=== PATIENT | male | born 1935 | race Caucasian/White ===

== ENCOUNTER 2020-10-24 22:12 | Emergency (ER) | payer MEDICARE, SELFPAY ==
--- NOTE | 2020-10-24 | XR_ITS ---
EXAMINATION: XR FINGER, LEFT CLINICAL INFORMATION: Foreign body in the middle finger. COMPARISON: None TECHNIQUE: 3 views of the left middle finger. FINDINGS: There is no radiopaque foreign body. No air in the soft tissues. No acute osseous abnormality. No fracture or dislocation. This mild joint narrowing of the third metacarpal bone just joint. Small subchondral cystic changes and spurring seen of the metacarpal head and small subchondral cystic changes of the proximal phalanx at this joint. This mild joint narrowing and subchondral cystic change also of the first metacarpal phalangeal joint. XR/XR finger LT min 2V IMPRESSION: 1. No radiopaque foreign body. No acute abnormality of the middle digit. 2. 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
[2020-10-24 22:16] VITALS: BP 154/76; PULSE 58; RESP 16; TEMP 37.1; O2SAT 98; BMI 26.6
--- NOTE | 2020-10-24 23:07 | ED.SKABFB ---
HPI - Skin/Abscess/Foreign Bdy General Chief complaint: Skin/Abscess/Foreign Body Stated complaint: finger pain Time Seen by Provider: 10/24/20 23:07 Source: patient Mode of arrival: ambulatory Limitations: no limitations History of Present Illness HPI narrative: 85-year-old male presenting to the ED with complaints of a questionable metal splinter to left middle finger tip after washing dishes with a scrubber. Denies any other symptoms complaints or concerns at this time. Related Data Previous Rx's Medication Instructions Recorded folic acid 1 mg tablet 1 mg PO DAILY #30 tab 09/14/20 metoprolol succinate 25 mg 25 mg PO DAILY #30 tab 09/14/20 tablet,extended release 24 hr omeprazole 20 mg capsule,delayed 20 mg PO DAILY #30 cap 09/14/20 release Allergies Allergy/AdvReac Type Severity Reaction Status Date / Time No Known Allergies Allergy Verified 10/24/20 22:21 Review of Systems Review of Systems: Constitutional : No Fever, No Chills, Cardiovascular : No Chest Pain, No SOB Respiratory : No Dyspnea Gastrointestinal : No abdominal pain Musculoskeletal : No Joint Swelling Skin : No skin laceration, + Foreign bodies, No rash, No surrounding erythema Neuro : No Weakness, No Numbness/tingling Psych : No SI/HI/thoughts of self injury Yes all other systems are reviewed and are negative [facility] Past Medical History Attestation statement: The following information was validated with the patient. Surgical History Stented coronary artery Social History Social History Advance Directives: No Advance Directives Information Provided: No Physical Exam Vital Signs: Vital Signs: Last Vital Signs Temp 98.7 F 10/24/20 22:16 Pulse 58 10/24/20 22:16 Resp 16 10/24/20 22:16 BP 154/76 H 10/24/20 22:16 Pulse Ox 98 10/24/20 22:16 Body Mass Index 26.6 vital signs have been reviewed as normal and appeared to be correct. Blood pressure normal. Heart rate normal. Respiration rate normal. Temperature normal. Oxygen saturation normal. Appearance: Alert. Oriented X3. No acute distress. Head: Normal external exam. Normocephalic. Eyes: PERRLA. EOMI. Conjunctiva and sclera normal. Eyelids normal. ENT: Pharynx normal. Uvula midline. Moist mucous membranes. Neck: Normal inspection. Neck supple. FROM. No adenopathy. No meningeal signs. CVS: Normal heart rate and rhythm. Heart sound normal. Pulses normal throughout. Respiratory: No respiratory distress. Painless inspiration. Back: Full range of motion noted. Skin: Skin warm and dry. Normal skin color. Normal skin turgor. No rashes/lesions/lacerations noted. Extremities: Extremities exhibit normal range of motion. Extremities nontender. Neuro: Oriented X 3. No motor deficit. No sensory deficit. Reflexes normal. Course Course Course Narrative: X-ray negative for any foreign bodies revealed arthritis. Will DC home with instructions to return if any new or worsening symptoms patient denies wanting a prescription for any symptomatic relief and instructions to follow-up with primary care provider. Patient understands agrees the plan. MDM - Skin/Abscess/Foreign Bdy Medical Records Attestation: I reviewed the patient's medical records. Imaging Data left middle finger: Attestation: I personally reviewed and interpreted this imaging study as follows: Radiologist's impression: IMPRESSION: 1. No radiopaque foreign body. No acute abnormality of the middle digit. 2. 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 Discharge Plan Discharge Clinical Impression: Finger pain, Arthritis Patient Disposition: Home, Self-Care Instructions: Arthritis (ED) Prescriptions: No Action metoprolol succinate 25 mg tablet extended release 24 hr 25 mg PO DAILY Qty: 30 RF: 5 folic acid 1 mg tablet 1 mg PO DAILY Qty: 30 RF: 5 omeprazole 20 mg capsule,delayed release(DR/EC) 20 mg PO DAILY Qty: 30 RF: 4 Referrals: Physician,Unknown [Primary Care Provider] - 2 days Print Language: Belarusian
== END 2020-10-24 23:30 | disposition home or self-care (01) ==
PROVIDERS: Emergency Provider Emergency Medicine Emergency Medical Services
DX: M79.645 Pain in left finger(s) (principal); Z79.899 Other long term (current) drug therapy
CPT/HCPCS: 73140; 99283; 99284

== ENCOUNTER 2020-11-05 09:27 | Outpatient (REF) | payer MEDICARE, SELFPAY ==
[2020-11-05 10:09] LABS: MANUAL DIFF FLAG NO
[2020-11-05 10:32] LABS: Basophils Percent Auto 0.7 % (0-2); Eosinophils Absolute Auto 0.1 X10*3/uL (0.0-0.4); Eosinophils Percent Auto 2.3 % (0-4); Hematocrit 36.1 % (42-52); Hemoglobin 11.1 g/dl (14.0-18.0); Imm Gran Abs Auto 0.02 X10*3/uL (0.00-0.03); Imm Gran Pct Auto 0.5 % (0.0-0.4); Lymphocytes Absolute Auto 0.8 X10*3/uL (1.2-4.9); Lymphocytes Percent Auto 17.2 % (20-40); Mean Corpuscular HGB Conc 30.7 g/dl (31.0-36.0); Mean Corpuscular Hemoglobin 20.2 pg (27.0-33.0); Mean Corpuscular Volume 65.8 fL (80-98); Mean Platelet Volume 10.3 fL (9.4-12.4); Monocytes Absolute Auto 0.4 X10*3/uL (0.1-1.2); Monocytes Percent Auto 8.7 % (2-11); Neutrophils Absolute Auto 3.1 X10*3/uL (2.0-8.3); Neutrophils Percent Auto 70.6 % (45-73); Platelet Count 133 X10*3/uL (160-400); Red Blood Count 5.49 X10*6/uL (4.60-5.80); Red Cell Distribution Width 15.6 % (11.0-16.0); White Blood Count 4.4 X10*3/uL (4.8-10.8)
[2020-11-05 11:03] LABS: Alanine Aminotransferase 14 U/L (0-40); Albumin Level 4.1 g/dL (3.5-5.0); Alkaline Phosphatase 134 U/L (39-117); Anion Gap 9 (12-20); Aspartate Amino Transferase 21 U/L (5-37); Bilirubin Total 1.1 mg/dL (0.0-1.0); Blood Urea Nitrogen 19 mg/dL (9-16); Calcium 8.7 mg/dL (8.4-10.2); Carbon Dioxide 29 mmol/L (22-29); Chloride 106 mmol/L (96-108); Cholesterol 139 mg/dL; Estimated Glomerular Filt Rate > 60; Glucose Fasting 98 mg/dL (60-99); HDL Cholesterol 48 mg/dL; LDL Cholesterol Calculated 79 mg/dl; Potassium 4.7 mmol/l (3.3-5.1); Sodium 139 mmol/L (135-145); Total Protein 6.5 g/dL (6.5-8.0); Triglycerides 64 mg/dL
[2020-11-05 11:05] LABS: Glucose Urine UA NEG (NEG); Leukocyte Esterase Urine NEG (NEG); Nitrite Urine NEG (NEG); Specific Gravity - Urine 1.025 (1.005-1.025); Urine Blood NEG (NEG); Urine Ketones NEG (NEG); Urine Protein 1+ MG/DL (NEG-TRACE)
[2020-11-05 11:11] LABS: Color Urine YELLOW
[2020-11-05 11:12] LABS: Appearance Urine CLEAR; Vitamin D 25-OH Total 44.8 ng/mL (>30)
[2020-11-05 11:21] LABS: Folate > 20.0 ng/mL (> or = 4.0); Vitamin B12 606 pg/mL (200-900)
[2020-11-05 12:12] LABS: Hyaline Casts Urine 0-2 /LPF; RBC Urine 0 /HPF (0); Squamous Epithelial Cell Urine TRACE /LPF; WBC Urine 0-2 /HPF (0-4)
== END 2020-11-05 09:28 | disposition home or self-care (01) ==
LOC: HO.10HDL 09:27
PROVIDERS: PCP Internal Medicine; Visit Provider Internal Medicine
DX: E78.00 Pure hypercholesterolemia, unspecified (principal); I25.10 Atherosclerotic heart disease of native coronary artery without angina pectoris; G62.9 Polyneuropathy, unspecified; K21.9 Gastro-esophageal reflux disease without esophagitis; D56.3 Thalassemia minor; N40.1 Benign prostatic hyperplasia with lower urinary tract symptoms; M88.862 Osteitis deformans of left lower leg; E55.9 Vitamin D deficiency, unspecified; E66.3 Overweight
CPT/HCPCS: 36415; 80053; 80061; 81001; 82306; 82607; 82746; 84443; 85025

== ENCOUNTER 2020-12-26 | Outpatient (REF) | payer MEDICARE, SELFPAY | END 2020-12-26 00:01 | disposition home or self-care (01) | LOC: HO.VC | PROVIDERS: Visit Provider Internal Medicine | DX: Z23 Encounter for immunization (principal) | CPT/HCPCS: 0011A ==

== ENCOUNTER 2021-01-22 | Outpatient (REF) | payer MEDICARE, SELFPAY | END 2021-01-22 00:01 | disposition home or self-care (01) | LOC: HO.VC | PROVIDERS: Visit Provider Internal Medicine | DX: Z23 Encounter for immunization (principal) | CPT/HCPCS: 0012A ==

== ENCOUNTER 2021-02-27 08:25 | Outpatient (REF) | payer MEDICARE, SELFPAY ==
[2021-02-27 10:05] LABS: MANUAL DIFF FLAG NO
[2021-02-27 10:14] LABS: Basophils Percent Auto 0.6 % (0-2); Eosinophils Absolute Auto 0.1 X10*3/uL (0.0-0.4); Eosinophils Percent Auto 1.3 % (0-4); Hematocrit 36.5 % (42-52); Hemoglobin 11.2 g/dl (14.0-18.0); Imm Gran Abs Auto 0.01 X10*3/uL (0.00-0.03); Imm Gran Pct Auto 0.2 % (0.0-0.4); Lymphocytes Percent Auto 20.9 % (20-40); Mean Corpuscular HGB Conc 30.7 g/dl (31.0-36.0); Mean Corpuscular Hemoglobin 20.2 pg (27.0-33.0); Mean Corpuscular Volume 65.9 fL (80-98); Mean Platelet Volume 11.4 fL (9.4-12.4); Monocytes Absolute Auto 0.4 X10*3/uL (0.1-1.2); Monocytes Percent Auto 9.1 % (2-11); Neutrophils Absolute Auto 3.2 X10*3/uL (2.0-8.3); Neutrophils Percent Auto 67.9 % (45-73); Platelet Count 171 X10*3/uL (160-400); Red Blood Count 5.54 X10*6/uL (4.60-5.80); Red Cell Distribution Width 16.4 % (11.0-16.0); White Blood Count 4.7 X10*3/uL (4.8-10.8)
[2021-02-27 10:53] LABS: Glucose Urine UA NEG (NEG); Leukocyte Esterase Urine NEG (NEG); Nitrite Urine NEG (NEG); Specific Gravity - Urine >= 1.030 (1.005-1.025); Urine Blood NEG (NEG); Urine Ketones NEG (NEG); Urine Protein 2+ MG/DL (NEG-TRACE)
[2021-02-27 10:56] LABS: Alanine Aminotransferase 14 U/L (0-40); Albumin Level 4.2 g/dL (3.5-5.0); Alkaline Phosphatase 148 U/L (39-117); Anion Gap 11 (12-20); Aspartate Amino Transferase 21 U/L (5-37); Bilirubin Total 1.3 mg/dL (0.0-1.0); Carbon Dioxide 26 mmol/L (22-29); Chloride 110 mmol/L (96-108); Cholesterol 155 mg/dL; Estimated Glomerular Filt Rate > 60; Glucose Fasting 91 mg/dL (60-99); HDL Cholesterol 53 mg/dL; LDL Cholesterol Calculated 87 mg/dl; Potassium 3.8 mmol/L (3.3-5.1); Sodium 143 mmol/L (135-145); Total Protein 6.8 g/dL (6.5-8.0); Triglycerides 75 mg/dL
[2021-02-27 10:58] LABS: Blood Urea Nitrogen 27 mg/dL (9-16); Calcium 9.4 mg/dL (8.4-10.2)
[2021-02-27 11:00] LABS: Appearance Urine CLEAR; Color Urine YELLOW
[2021-02-27 11:04] LABS: TSH reflex Free T4 1.46 uIU/mL (0.32-4.0); Vitamin D 25-OH Total 39.1 ng/mL (>30)
[2021-02-27 11:12] LABS: Squamous Epithelial Cell Urine 1+ /LPF
== END 2021-02-27 08:26 | disposition home or self-care (01) ==
LOC: HO.10HDL 08:25
PROVIDERS: Visit Provider Internal Medicine
DX: D56.3 Thalassemia minor (principal); G62.9 Polyneuropathy, unspecified; I25.10 Atherosclerotic heart disease of native coronary artery without angina pectoris; K21.9 Gastro-esophageal reflux disease without esophagitis; K59.00 Constipation, unspecified; E78.00 Pure hypercholesterolemia, unspecified; E55.9 Vitamin D deficiency, unspecified; M88.862 Osteitis deformans of left lower leg; E66.3 Overweight
CPT/HCPCS: 36415; 80053; 80061; 81001; 81003; 82306; 84443; 85025

== ENCOUNTER → 2021-05-16 08:42 | Outpatient (BNVA) | payer MEDICARE, SELFPAY | PROVIDERS: PCP Internal Medicine; Referring Provider Internal Medicine; Visit Provider Surgery | DX: L72.0 Epidermal cyst (principal) | CPT/HCPCS: 99202 ==

== ENCOUNTER → 2021-10-21 09:33 | Outpatient (BNVA) | payer MEDICARE, SELFPAY | PROVIDERS: PCP Internal Medicine; Referring Provider Internal Medicine; Visit Provider Surgery | DX: L72.0 Epidermal cyst (principal) | CPT/HCPCS: 99212 ==

== ENCOUNTER 2021-11-07 13:43 | Outpatient (REF) | payer MEDICARE, SELFPAY ==
[2021-11-07 13:45] VITALS: BMI 22.9
[2021-11-07 13:48] VITALS: BP 158/70; PULSE 60; RESP 16; TEMP 36.6; O2SAT 98
--- NOTE | 2021-11-07 14:15 | W.PM.OPN ---
Operative Note Operative Note Date of Service: 11/07/21 Narrative: Preop diagnosis: Epidermal inclusion cyst from the mid back Postop diagnosis: The same Procedure: Excision of large epidermal inclusion cyst from the mid back under local anesthesia Surgeon: Agustin Zambrano MD The patient is an 86-year-old male with a large epidermal cyst from the mid back. This measured about 6 cm across. He understood the technique of excision under local anesthesia. He was aware of the risks, benefits, and alternatives . He was brought to the operating room and placed in prone position. The area of the cyst was prepped and draped. Lidocaine 1% was used for local anesthesia. I made a transverse incision on the skin overlying this cyst using blade 15. This was carried down through the full-thickness of the skin and part of the subcutaneous layer until the cystic capsule was visualized. I sharply dissected the cyst capsule off the rest of the subcutaneous layer and posteriorly until this was delivered. This cyst measured about 6 cm diameter. This was sent as a specimen. I irrigated the area of excision and closed the incision with full-thickness nylon 3-0 interrupted sutures. Thick dressings were applied. The procedure was then completed The patient tolerated procedure well. There were no complication noted. Initial and final counts of sponges and instruments were correct. Estimated blood loss was about 5 cc . The patient was given wound care instructions and will be seen in the office for removal sutures.
== END 2021-11-07 13:44 | disposition home or self-care (01) ==
LOC: HO.MS 13:43
PROVIDERS: PCP Internal Medicine; Visit Provider Surgery
PROC: (CPT 11406; principal; 2021-11-07 13:50)
DX: L72.0 Epidermal cyst (principal)
CPT/HCPCS: 11406; 88304

== ENCOUNTER → 2021-11-20 12:49 | Outpatient (BNVA) | payer MEDICARE, SELFPAY | PROVIDERS: PCP Internal Medicine; Referring Provider Internal Medicine; Visit Provider Surgery | DX: Z48.817 Encounter for surgical aftercare following surgery on the skin and subcutaneous tissue (principal); Z87.2 Personal history of diseases of the skin and subcutaneous tissue | CPT/HCPCS: 99212 ==

== ENCOUNTER → 2021-12-12 15:22 | Outpatient (BNVA) | payer MEDICARE, SELFPAY | PROVIDERS: PCP Internal Medicine; Referring Provider Internal Medicine; Visit Provider Surgery | DX: Z48.817 Encounter for surgical aftercare following surgery on the skin and subcutaneous tissue (principal); Z87.2 Personal history of diseases of the skin and subcutaneous tissue | CPT/HCPCS: 99212 ==

== ENCOUNTER 2022-03-10 08:23 | Outpatient (REF) | payer MEDICARE, SELFPAY ==
[2022-03-10 08:33] LABS: MANUAL DIFF FLAG NO
[2022-03-10 09:01] LABS: Basophils Percent Auto 0.6 % (0-2); Eosinophils Absolute Auto 0.1 X10*3/uL (0.0-0.4); Eosinophils Percent Auto 1.7 % (0-4); Hematocrit 39.3 % (42.0-52.0); Hemoglobin 11.9 g/dl (14.0-18.0); Imm Gran Abs Auto 0.02 X10*3/uL (0.00-0.03); Imm Gran Pct Auto 0.4 % (0.0-0.4); Lymphocytes Percent Auto 20.6 % (20-40); Mean Corpuscular HGB Conc 30.3 g/dl (31.0-36.0); Mean Corpuscular Hemoglobin 19.9 pg (27.0-33.0); Mean Corpuscular Volume 65.8 fL (80.0-98.0); Mean Platelet Volume 10.6 fL (9.4-12.4); Monocytes Absolute Auto 0.4 X10*3/uL (0.1-1.2); Monocytes Percent Auto 9.4 % (2-11); Neutrophils Absolute Auto 3.1 x10*3/uL (2.0-8.3); Neutrophils Percent Auto 67.3 % (45-73); Platelet Count 138 X10*3/uL (160-400); Red Blood Count 5.97 X10*6/uL (4.60-5.80); Red Cell Distribution Width 15.7 % (11.0-16.0); White Blood Count 4.7 X10*3/uL (4.8-10.8)
[2022-03-10 09:09] LABS: Alanine Aminotransferase 16 U/L (0-40); Albumin Level 4.2 g/dL (3.5-5.0); Alkaline Phosphatase 133 U/L (39-117); Anion Gap 9 (12-20); Aspartate Amino Transferase 22 U/L (5-37); Bilirubin Total 1.4 mg/dL (0.0-1.0); Blood Urea Nitrogen 15 mg/dL (9-16); Carbon Dioxide 29 mmol/L (22-29); Chloride 105 mmol/L (96-108); Cholesterol 154 mg/dL; Estimated Glomerular Filt Rate > 60; Glucose Fasting 102 mg/dL (60-99); HDL Cholesterol 55 mg/dL; Iron 92 mcg/dL (45-160); LDL Cholesterol Calculated 80 mg/dl; Percent Iron Saturation 32 % (15-50); Potassium 4.3 mmol/L (3.3-5.1); Sodium 139 mmol/L (135-145); Total Iron Binding Capacity 284 mcg/dL (228-428); Total Protein 6.9 g/dL (6.5-8.0); Triglycerides 96 mg/dL; Unsaturated Iron Binding 192 ug/dL
[2022-03-10 09:12] LABS: Appearance Urine CLEAR; Color Urine YELLOW; Glucose Urine UA NEG (NEG); Leukocyte Esterase Urine NEG (NEG); Nitrite Urine NEG (NEG); UACC Culture Trigger NO; Urine Blood NEG (NEG); Urine Ketones NEG (NEG); Urine Protein 1+ MG/DL (NEG-TRACE)
[2022-03-10 09:29] LABS: TSH reflex Free T4 2.18 uIU/mL (0.32-4.0); Vitamin D 25-OH Total 40.3 ng/mL (>30)
[2022-03-10 09:40] LABS: Mucus Urine TRACE /LPF; RBC Urine 0-2 /HPF (0); Squamous Epithelial Cell Urine TRACE /LPF; WBC Urine 0-2 /HPF (0-4)
[2022-03-12 22:26] LABS: Hematocrit 39.8 % (38.5-50.0); Hemoglobin 12.4 g/dL (13.2-17.1); MCH 20.2 pg (27.0-33.0); MCV 64.9 fL (80.0-100.0); RBC 6.13 Million/uL (4.20-5.80); RDW 17.2 % (11.0-15.0)
== END 2022-03-10 08:24 | disposition home or self-care (01) ==
LOC: HO.LAB 08:23
PROVIDERS: PCP Internal Medicine; Visit Provider Urology
DX: D56.3 Thalassemia minor (principal); E78.00 Pure hypercholesterolemia, unspecified; I25.10 Atherosclerotic heart disease of native coronary artery without angina pectoris; E55.9 Vitamin D deficiency, unspecified; D50.9 Iron deficiency anemia, unspecified; M88.862 Osteitis deformans of left lower leg
CPT/HCPCS: 36415; 80053; 80061; 81001; 82306; 83020; 83540; 84443; 85014; 85018; 85025; 85041

== ENCOUNTER 2022-03-17 09:35 | Outpatient (REF) | payer MEDICARE, SELFPAY ==
[2022-03-17 11:38] LABS: PSA,Total (Free>4and<10) 2.03 ng/mL (0.00-4.00)
== END 2022-03-17 09:36 | disposition home or self-care (01) ==
LOC: HO.10HDL 09:35
PROVIDERS: Visit Provider Urology
DX: Z12.5 Encounter for screening for malignant neoplasm of prostate (principal); N40.1 Benign prostatic hyperplasia with lower urinary tract symptoms
CPT/HCPCS: 36415; 84153

== ENCOUNTER → 2022-03-19 11:22 | Outpatient (BNVA) | payer MEDICARE, SELFPAY | PROVIDERS: PCP Internal Medicine; Visit Provider Urology | DX: Z13.89 Encounter for screening for other disorder (principal) | CPT/HCPCS: 99212 ==

== ENCOUNTER 2022-04-22 08:17 | Outpatient (REF) | payer MEDICARE, SELFPAY ==
[2022-04-22 08:50] LABS: MANUAL DIFF FLAG NO
[2022-04-22 09:09] LABS: Basophils Percent Auto 0.8 % (0-2); Eosinophils Absolute Auto 0.1 X10*3/uL (0.0-0.4); Eosinophils Percent Auto 1.2 % (0-4); Hematocrit 38.2 % (42.0-52.0); Hemoglobin 11.6 g/dl (14.0-18.0); Imm Gran Abs Auto 0.03 X10*3/uL (0.00-0.03); Imm Gran Pct Auto 0.6 % (0.0-0.4); Lymphocytes Absolute Auto 0.9 X10*3/uL (1.2-4.9); Lymphocytes Percent Auto 17.1 % (20-40); Mean Corpuscular HGB Conc 30.4 g/dl (31.0-36.0); Mean Corpuscular Hemoglobin 20.1 pg (27.0-33.0); Mean Corpuscular Volume 66.3 fL (80.0-98.0); Mean Platelet Volume 10.1 fL (9.4-12.4); Monocytes Absolute Auto 0.4 X10*3/uL (0.1-1.2); Monocytes Percent Auto 7.3 % (2-11); Neutrophils Absolute Auto 3.8 x10*3/uL (2.0-8.3); Platelet Count 149 X10*3/uL (160-400); Red Blood Count 5.76 X10*6/uL (4.60-5.80); White Blood Count 5.2 X10*3/uL (4.8-10.8)
[2022-04-22 09:37] LABS: Alanine Aminotransferase 17 U/L (0-40); Alkaline Phosphatase 130 U/L (39-117); Anion Gap 10 (12-20); Aspartate Amino Transferase 22 U/L (5-37); Bilirubin Total 1.1 mg/dL (0.0-1.0); Blood Urea Nitrogen 16 mg/dL (9-16); Calcium 9.4 mg/dL (8.4-10.2); Carbon Dioxide 27 mmol/L (22-29); Chloride 107 mmol/L (96-108); Cholesterol 137 mg/dL; Estimated Glomerular Filt Rate 58; Glucose Fasting 98 mg/dL (60-99); HDL Cholesterol 53 mg/dL; LDL Cholesterol Calculated 72 mg/dl; Potassium 4.2 mmol/L (3.3-5.1); Sodium 140 mmol/L (135-145); Total Protein 6.6 g/dL (6.5-8.0); Triglycerides 64 mg/dL
[2022-04-22 09:54] LABS: Erythrocyte Sedimentation Rate 3 MM/HR (0-15)
[2022-04-22 10:00] LABS: TSH reflex Free T4 1.27 uIU/mL (0.32-4.0); Vitamin D 25-OH Total 37.6 ng/mL (>30)
[2022-04-22 10:07] LABS: Appearance Urine CLEAR; Color Urine YELLOW; Glucose Urine UA NEG (NEG); Leukocyte Esterase Urine NEG (NEG); Nitrite Urine NEG (NEG); PH 5.5 (5.0-8.0); Specific Gravity - Urine >= 1.030 (1.005-1.025); UACC Culture Trigger NO; Urine Blood NEG (NEG); Urine Ketones NEG (NEG); Urine Protein 2+ MG/DL (NEG-TRACE)
[2022-04-22 10:10] LABS: Folate > 20.0 ng/mL (> or = 4.0); Vitamin B12 701 pg/mL (200-900)
[2022-04-22 11:04] LABS: Bacteria Urine TRACE /LPF; RBC Urine 0 /HPF (0); Squamous Epithelial Cell Urine 1+ /LPF; WBC Urine 0-2 /HPF (0-4)
[2022-04-22 11:05] LABS: Amorphous Sediment Urine 1+ /LPF; Mucus Urine 1+ /LPF
== END 2022-04-22 08:18 | disposition home or self-care (01) ==
LOC: HO.LAB 08:17
PROVIDERS: PCP Internal Medicine; Visit Provider Internal Medicine
DX: D56.3 Thalassemia minor (principal); I25.10 Atherosclerotic heart disease of native coronary artery without angina pectoris; K21.9 Gastro-esophageal reflux disease without esophagitis; K59.00 Constipation, unspecified; E78.00 Pure hypercholesterolemia, unspecified; M47.816 Spondylosis without myelopathy or radiculopathy, lumbar region; E66.3 Overweight; G62.9 Polyneuropathy, unspecified; E55.9 Vitamin D deficiency, unspecified; M88.862 Osteitis deformans of left lower leg
CPT/HCPCS: 36415; 80053; 80061; 81001; 82306; 82607; 82746; 84443; 85025; 85652

== ENCOUNTER 2022-12-24 08:33 | Outpatient (REF) | payer MEDICARE, SELFPAY ==
[2022-12-24 10:38] LABS: MANUAL DIFF FLAG NO
[2022-12-24 10:40] LABS: Appearance Urine Clear; Color Urine Yellow; Glucose Urine UA Negative (Negative); Leukocyte Esterase Urine Negative (Negative); Nitrite Urine Negative (Negative); PH 5.5 (5.0-9.0); UMIC TRIGGER UACC YES; Urine Blood Negative (Negative); Urine Ketones Negative (Negative); Urine Protein 100 (2+) mg/dL (Neg-Trace)
[2022-12-24 10:46] LABS: Bacteria Urine None Seen (None Seen); Hyaline Casts Urine 0-2 /LPF (0-2); RBC Urine 0-2 /HPF (0-2); Squamous Epithelial Cell Urine 0-2 /HPF (0-2); WBC Urine 0-5 /HPF (0-5)
[2022-12-24 10:48] LABS: Basophils Percent Auto 0.8 % (0-2); Eosinophils Absolute Auto 0.1 X10*3/uL (0.0-0.4); Eosinophils Percent Auto 1.6 % (0-4); Hematocrit 36.4 % (42.0-52.0); Hemoglobin 11.1 g/dl (14.0-18.0); Imm Gran Abs Auto 0.02 X10*3/uL (0.00-0.03); Imm Gran Pct Auto 0.4 % (0.0-0.4); Lymphocytes Absolute Auto 0.9 X10*3/uL (1.2-4.9); Lymphocytes Percent Auto 17.5 % (20-40); Mean Corpuscular HGB Conc 30.5 g/dl (31.0-36.0); Mean Corpuscular Hemoglobin 20.2 pg (27.0-33.0); Mean Corpuscular Volume 66.2 fL (80.0-98.0); Mean Platelet Volume 11.2 fL (9.4-12.4); Monocytes Absolute Auto 0.4 X10*3/uL (0.1-1.2); Monocytes Percent Auto 8.4 % (2-11); Neutrophils Absolute Auto 3.6 x10*3/uL (2.0-8.3); Neutrophils Percent Auto 71.3 % (45-73); Platelet Count 130 X10*3/uL (160-400); Red Cell Distribution Width 15.6 % (11.0-16.0)
[2022-12-24 11:06] LABS: Alanine Aminotransferase 16 U/L (0-40); Alkaline Phosphatase 132 U/L (39-117); Anion Gap 11 (12-20); Aspartate Amino Transferase 22 U/L (5-37); Bilirubin Total 1.4 mg/dL (0.0-1.0); Blood Urea Nitrogen 17 mg/dL (9-16); Calcium 9.1 mg/dL (8.4-10.2); Carbon Dioxide 27 mmol/L (22-29); Chloride 106 mmol/L (96-108); Cholesterol 134 mg/dL; Estimated Glomerular Filt Rate 51; Glucose Fasting 92 mg/dL (60-99); HDL Cholesterol 52 mg/dL; LDL Cholesterol Calculated 71 mg/dl; Potassium 4.2 mmol/L (3.3-5.1); Sodium 140 mmol/L (135-145); Total Protein 6.2 g/dL (6.5-8.0); Triglycerides 55 mg/dL
[2022-12-24 11:24] LABS: TSH reflex Free T4 1.79 uIU/mL (0.32-4.0); Vitamin D 25-OH Total 34.7 ng/mL (>30)
== END 2022-12-24 08:34 | disposition home or self-care (01) ==
LOC: HO.10HDL 08:33
PROVIDERS: Visit Provider Internal Medicine
DX: E78.00 Pure hypercholesterolemia, unspecified (principal); E55.9 Vitamin D deficiency, unspecified; I10 Essential (primary) hypertension; R30.0 Dysuria
CPT/HCPCS: 36415; 80053; 80061; 81001; 82306; 84443; 85025

== ENCOUNTER 2023-03-02 07:57 | Outpatient (REF) | payer MEDICARE, SELFPAY ==
[2023-03-02 11:11] LABS: Prostate Specific Antigen 2.76 ng/mL (<0.05-4.0)
== END 2023-03-02 07:58 | disposition home or self-care (01) ==
LOC: HO.10HDL 07:57
PROVIDERS: Visit Provider Urology
DX: N40.1 Benign prostatic hyperplasia with lower urinary tract symptoms (principal); N13.8 Other obstructive and reflux uropathy; Z12.5 Encounter for screening for malignant neoplasm of prostate
CPT/HCPCS: 36415; 84153

== ENCOUNTER → 2023-03-11 14:37 | Outpatient (BNVA) | payer MEDICARE, SELFPAY | PROVIDERS: PCP Internal Medicine; Visit Provider Urology | DX: N40.1 Benign prostatic hyperplasia with lower urinary tract symptoms (principal); N13.8 Other obstructive and reflux uropathy; R35.1 Nocturia; R97.20 Elevated prostate specific antigen [PSA] | CPT/HCPCS: 99212 ==

== ENCOUNTER 2023-05-14 08:01 | Outpatient (REF) | payer MEDICARE, SELFPAY ==
[2023-05-14 10:38] LABS: MANUAL DIFF FLAG NO
[2023-05-14 10:52] LABS: Appearance Urine Clear; Color Urine Yellow; Glucose Urine UA Negative (Negative); Leukocyte Esterase Urine Negative (Negative); Nitrite Urine Negative (Negative); PH 5.5 (5.0-9.0); UMIC TRIGGER UACC YES; Urine Blood Negative (Negative); Urine Ketones Negative (Negative); Urine Protein 100 (2+) mg/dL (Neg-Trace)
[2023-05-14 11:01] LABS: Bacteria Urine None Seen (None Seen); Hyaline Casts Urine 0-2 /LPF (0-2); RBC Urine 0-2 /HPF (0-2); Squamous Epithelial Cell Urine 0-2 /HPF (0-2); WBC Urine 0-5 /HPF (0-5)
[2023-05-14 11:05] LABS: Basophils Percent Auto 0.9 % (0-2); Eosinophils Absolute Auto 0.1 X10*3/uL (0.0-0.4); Eosinophils Percent Auto 1.8 % (0-4); Hematocrit 35.4 % (42.0-52.0); Hemoglobin 10.7 g/dl (14.0-18.0); Imm Gran Abs Auto 0.03 X10*3/uL (0.00-0.03); Imm Gran Pct Auto 0.7 % (0.0-0.4); Lymphocytes Percent Auto 21.2 % (20-40); Mean Corpuscular HGB Conc 30.2 g/dl (31.0-36.0); Mean Corpuscular Hemoglobin 20.1 pg (27.0-33.0); Mean Corpuscular Volume 66.4 fL (80.0-98.0); Mean Platelet Volume 11.1 fL (9.4-12.4); Monocytes Absolute Auto 0.4 X10*3/uL (0.1-1.2); Monocytes Percent Auto 9.2 % (2-11); Neutrophils Percent Auto 66.2 % (45-73); Platelet Count 127 X10*3/uL (160-400); Red Blood Count 5.33 X10*6/uL (4.60-5.80); Red Cell Distribution Width 15.9 % (11.0-16.0); White Blood Count 4.6 X10*3/uL (4.8-10.8)
[2023-05-14 11:34] LABS: Alanine Aminotransferase 15 U/L (0-40); Albumin Level 3.8 g/dL (3.5-5.0); Alkaline Phosphatase 115 U/L (39-117); Anion Gap 11 (12-20); Aspartate Amino Transferase 23 U/L (5-37); Bilirubin Total 1.3 mg/dL (0.0-1.0); Blood Urea Nitrogen 24 mg/dL (9-16); Calcium 9.6 mg/dL (8.4-10.2); Carbon Dioxide 25 mmol/L (22-29); Chloride 109 mmol/L (96-108); Cholesterol 123 mg/dL; Estimated Glomerular Filt Rate > 60; Glucose Fasting 92 mg/dL (60-99); HDL Cholesterol 46 mg/dL; LDL Cholesterol Calculated 62 mg/dl; Potassium 3.7 mmol/L (3.3-5.1); Sodium 141 mmol/L (135-145); Total Protein 6.5 g/dL (6.5-8.0); Triglycerides 75 mg/dL
[2023-05-14 11:42] LABS: TSH reflex Free T4 1.71 uIU/mL (0.32-4.0); Vitamin D 25-OH Total 40.4 ng/mL (>30)
[2023-05-14 12:00] LABS: Folate > 20.0 ng/mL (> or = 4.0); Vitamin B12 662 pg/mL (200-900)
== END 2023-05-14 08:02 | disposition home or self-care (01) ==
LOC: HO.10HDL 08:01
PROVIDERS: Visit Provider Internal Medicine
DX: E55.9 Vitamin D deficiency, unspecified (principal); E53.8 Deficiency of other specified B group vitamins; I10 Essential (primary) hypertension; E78.00 Pure hypercholesterolemia, unspecified; R30.0 Dysuria
CPT/HCPCS: 36415; 80053; 80061; 81001; 82306; 82607; 82746; 84443; 85025

== ENCOUNTER 2023-10-05 08:21 | Outpatient (REF) | payer MEDICARE, SELFPAY ==
[2023-10-05 10:39] LABS: MANUAL DIFF FLAG NO
[2023-10-05 10:49] LABS: Basophils Percent Auto 0.6 % (0-2); Eosinophils Absolute Auto 0.1 X10*3/uL (0.0-0.4); Eosinophils Percent Auto 1.6 % (0-4); Hematocrit 38.6 % (42.0-52.0); Hemoglobin 11.8 g/dl (14.0-18.0); Imm Gran Abs Auto 0.02 X10*3/uL (0.00-0.03); Imm Gran Pct Auto 0.4 % (0.0-0.4); Lymphocytes Absolute Auto 0.9 X10*3/uL (1.2-4.9); Lymphocytes Percent Auto 16.7 % (20-40); Mean Corpuscular HGB Conc 30.6 g/dl (31.0-36.0); Mean Corpuscular Hemoglobin 20.2 pg (27.0-33.0); Mean Platelet Volume 11.2 fL (9.4-12.4); Monocytes Absolute Auto 0.4 X10*3/uL (0.1-1.2); Monocytes Percent Auto 8.3 % (2-11); Neutrophils Absolute Auto 3.7 x10*3/uL (2.0-8.3); Neutrophils Percent Auto 72.4 % (45-73); Platelet Count 144 X10*3/uL (160-400); Red Blood Count 5.85 X10*6/uL (4.60-5.80); Red Cell Distribution Width 15.3 % (11.0-16.0); White Blood Count 5.2 X10*3/uL (4.8-10.8)
[2023-10-05 11:04] LABS: Alanine Aminotransferase 16 U/L (0-40); Alkaline Phosphatase 111 U/L (39-117); Anion Gap 11 (12-20); Aspartate Amino Transferase 22 U/L (5-37); Bilirubin Total 1.1 mg/dL (0.0-1.0); Blood Urea Nitrogen 13 mg/dL (9-16); Calcium 9.5 mg/dL (8.4-10.2); Carbon Dioxide 28 mmol/L (22-29); Chloride 106 mmol/L (96-108); Cholesterol 132 mg/dL (<200); Estimated Glomerular Filt Rate > 60; Glucose Fasting 102 mg/dL (60-99); HDL Cholesterol 57 mg/dL (>40); LDL Cholesterol Calculated 62 mg/dL (<100); Potassium 3.8 mmol/L (3.3-5.1); Sodium 141 mmol/L (135-145); Total Protein 6.8 g/dL (6.5-8.0); Triglycerides 65 mg/dL (<150)
[2023-10-05 11:13] LABS: Appearance Urine Clear; Color Urine Yellow; Glucose Urine UA Negative (Negative); Leukocyte Esterase Urine Negative (Negative); Nitrite Urine Negative (Negative); PH 5.5 (5.0-9.0); UMIC TRIGGER UACC YES; Urine Blood Negative (Negative); Urine Ketones Negative (Negative); Urine Protein 100 (2+) mg/dL (Neg-Trace)
[2023-10-05 11:17] LABS: Bacteria Urine None Seen (None Seen); Hyaline Casts Urine 0-2 /LPF (0-2); RBC Urine 0-2 /HPF (0-2); Squamous Epithelial Cell Urine 0-2 /HPF (0-2); WBC Urine 0-5 /HPF (0-5)
[2023-10-05 11:20] LABS: TSH reflex Free T4 0.95 uIU/mL (0.32-4.0); Vitamin D 25-OH Total 45.3 ng/mL (>30)
[2023-10-05 11:28] LABS: Folate 15.7 ng/mL (> or = 4.0); Vitamin B12 745 pg/mL (200-900)
== END 2023-10-05 08:22 | disposition home or self-care (01) ==
LOC: HO.10HDL 08:21
PROVIDERS: Visit Provider Internal Medicine
DX: I10 Essential (primary) hypertension (principal); E78.00 Pure hypercholesterolemia, unspecified; R30.0 Dysuria; E53.8 Deficiency of other specified B group vitamins; E55.9 Vitamin D deficiency, unspecified
CPT/HCPCS: 36415; 80053; 80061; 81001; 81003; 82306; 82607; 82746; 84443; 85025

== ENCOUNTER 2023-10-07 13:14 | Outpatient (AMB) | payer MEDICARE, SELFPAY ==
--- NOTE | 2023-10-07 13:23 | A.OFFPC_ITS ---
Vital Signs 10/07/23 13:24 Height 5 ft 7 in Weight 153 lb 8 oz BMI 24.0 BP 130/72 Blood Pressure Location Lt brachial Position Sitting Pulse 54 Pulse Source Pulse Oximeter Pulse Oximetry (%) 98 Oxygen Delivery Method Room Air Intake Visit Reasons: beta thalassemia trait, CAD, hyperlipidemia, OA Strategy Specialist Required: No Accompanied by: Self / Same As Patient Allergies No Known Allergies Allergy (Verified 10/07/23 13:49) Medication List - Last Reconciled 10/07/23 by Francis Echavarria MD finasteride 5 mg PO DAILY 90 days folic acid 1 mg PO DAILY metoprolol succinate ER 25 mg PO DAILY omeprazole 20 mg PO DAILY Tobacco use date assessed: 10/07/23 Fall risk assessment: No Falls in past year Last assessed Fall Risk: 10/07/23 Dental Screening Dental Screen Date: 10/07/23 Did you have a dental visit in the last 12 months?: No Did you have a dental problem in the last 6 months where you did not have access to dental care?: No Was dental information given to patient?: No HPI beta thalassemia trait, CAD, hyperlipidemia, OA HPI Details Patient comes in today for his follow up visit States that he feels okay He denies any headaches or dizziness Denies any chest pains, no SOB No nausea/vomiting, no abdominal pain No change in bowel habits noted - was experiencing some constipation recently and was given some stool softener by one of his doctors in [place] and states that the Rx helps and he takes them only as needed Had his follow up labs done a couple of days ago - to discuss his results Would also like to get his flu shot today [facility] Medical History Epidermal inclusion cyst Overweight (BMI 25.0-29.9) Insomnia Vitamin D deficiency 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 Benign prostatic hyperplasia with lower urinary tract 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 GERD without esophagitis Constipation Spondylosis of lumbar region without myelopathy or radiculopathy Peripheral polyneuropathy Pure hypercholesterolemia Coronary artery disease Surgical History History of cardiac catheterization Stented coronary artery Family History Father Medical history unknown Mother Medical history unknown Family/Other Thalassemia Social History Housing: House Alcohol intake: never Patient Tobacco Use Status: Former Tobacco user e-Cigarette/Vaping Use: Never Used Second Hand Smoke Exposure: Yes service: No Current occupational status: retired Cognitive needs: No Hearing needs: No Vision needs: Yes Questionnaire PHQ-9 Over the last 2 weeks, how often have you been bothered by any of the following problems? 1. Little interest or pleasure in doing things: not at all 2. Feeling down, depressed, or hopeless: not at all 3. Trouble falling or staying asleep, or sleeping too much: not at all 4. Feeling tired or having little energy: not at all 5. Poor appetite or overeating: not at all 6. Feeling bad about yourself - or that you are a failure or have let yourself or your family down: not at all 7. Trouble concentrating on things, such as reading the newspaper or watching television: not at all 8. Moving or speaking so slowly that other people could have noticed. Or the opposite - being so fidgety or restless that you have been moving around a lot more than usual: not at all 9. Thoughts that you would be better off or of hurting yourself in some way: not at all Total score: 0 Depression Screening Interpretation: Negative Depression Screening Done: Yes [id number] - PHQ-9 Billing: Yes Source: Developed by Drs. Marlon Mota, Tequila Swain, Yuriy Mosquera and colleagues, with an educational rose from [employer]. Thrive Questionnaire Date Thrive assessed: 10/07/23 I am a: Patient What is your living situation today?: I have a steady place to live Within the past 12 months, did the food you bought not last and you didn't have the money to get more?: Never true Within the past 12 months, did you worry whether your food would run out before you got money to buy more?: Never true Do you have trouble paying for medicines?: No Do you have trouble getting transportation to medical appointments?: No Do you have trouble paying your heating and electricity bill?: No Do you have trouble taking care of your child, family member or friend?: No Do you have trouble with day-to-day activities such as bathing, preparing meals, shopping, managing finances, etc.?: No Are you currently unemployed and looking for a job?: No Are you interested in more education?: No Please select the resources that you would like help with: None Currently or been in a relationship where the following occur: no concerns reported AUDIT C Alcohol Use Questionnaire (AUDIT-C) 1. How often do you have a drink containing alcohol?: Never 3. How often do you have six or more drinks on one occasion?: Never Total Score: 0 Score Reviewed/Action Taken: Yes JOSETTE-7 AMB Questionnaire JOSETTE-7 Date JOSETTE - 7 assessed: 10/07/23 Feeling nervous, anxious, or on edge: 0 = Not at all Not being able to stop or control worryin = Not at all Worrying too much about different things: 0 = Not at all Trouble relaxin = Not at all Being so restless that it is hard to sit still: 0 = Not at all Becoming easily annoyed or irritable: 0 = Not at all Feeling afraid as if something awful might happen: 0 = Not at all Total JOSETTE-7 score (0-4 normal; 5-9 mild; 10-14 moderate; 15-21 severe): 0 Source: Developed by Drs. Marlon Mota, Tequila Swain, Yuriy Mosquera and colleagues, with an educational rose from [employer]. Review of Systems Const Denies chills, Denies fatigue, Denies fever(s) and Denies headache(s) ENT Details: Is hard of hearing - states that he has something to wear to help with his hearing but he does not like having them on Denies dysphagia, Denies dizziness, Denies otalgia, Denies headache(s), Denies odynophagia and Denies sore throat Card Denies chest pain, Denies palpitations and Denies dyspnea Resp Denies cough and Denies dyspnea GI Denies abdominal pain, Denies hematochezia, Denies constipation, Denies dysphagia, Denies heartburn, Denies diarrhea, Denies nausea, Denies odynophagia and Denies vomiting Denies dysuria, Denies nocturia and Denies urinary frequency Musc Reports back pain (over the lower back, off and on) Skin/Breast Denies rash Neuro Denies dizziness and Denies headache(s) Endo Denies fatigue and Denies palpitations Physical exam (Primary Care) Vital Signs: Last Vital Signs Pulse 54 10/07/23 13:24 BP 130/72 10/07/23 13:24 Pulse Ox 98 10/07/23 13:24 Oxygen Delivery Method Room Air 10/07/23 13:24 BMI result Body Mass Index 24.0 Tobacco/Smoking Status: Tobacco use Status Tobacco use date assessed 10/07/23 10/07/23 13:25 Patient Tobacco Use Status Former Tobacco user 10/07/23 13:25 e-Cigarette/Vaping Use Never Used 10/07/23 13:25 PHQ-9: PHQ-9 Score PHQ-9: Total score 0 10/07/23 14:19 Depression Screening Interpretation: Negative Thrive Assessment: Date of Thrive Assessment Date Thrive assessed 10/07/23 10/07/23 13:29 Currently or been in a relationship where the following occur: no concerns reported Const General: no acute distress and alert HENMT Ears: TM's normal bilaterally and EAC's normal Throat: Yes posterior oropharynx normal and Yes tonsils normal (no TP congestion) Neck Neck: Yes no lymphadenopathy and Yes supple Resp Auscultation: clear to auscultation bilaterally, no rales and no wheezes Cardio Rate: regular rate Rhythm: regular rhythm Heart sounds: no murmurs GI Palpation (GI): Soft to palpation and nontender Auscultation: normal bowel sounds Back/Spine/Pelvis Thoracic/Lumbar Spine: lumbar spinal tenderness Skin Rashes: no rashes Extrem General: Yes no clubbing, cyanosis or edema Office Procedures Flu Questionnaire Does the patient have a severe egg allergy?: No Does the patient have severe life threatening allergies?: No Does the patient have a fever or illness today?: No Has the patient ever had Guillain-[place] Syndrome?: No Has the patient ever had any past reaction to a flu shot?: No Immunizations flu vacc [id number] 6mos up(PF) 60 mcg(15 mcgx4)/0.5 mL IM syringe Performing Provider: Francis Echavarria MD Performing Location: [facility] Administered by: Viviana Sánchez on 10/07/23 14:19 Dose Route Admin Location Dispensed Lot Number Expiration Date NDC Tile [employer] 0.5 mL IM Left Deltoid 0.5 mL [id number] 05/22/24 [id number] [employer] VIS Given Date VIS Provided VIS Publication Date 10/07/23 Single Vaccine 21 Eligibility Eligibility Date Funding Source Not VF Eligible 10/07/23 Private Results Reviewed Results Reviewed: Laboratory Tests 10/05/23 08:25 WBC 5.2 Hgb 11.8 L Hct 38.6 L Plt Count 144 L Sodium 141 Potassium 3.8 Creatinine 1.09 Estimated GFR > 60 Fasting Glucose 102 H Calcium 9.5 AST 22 ALT 16 Triglycerides 65 Cholesterol 132 LDL Cholesterol, Calc 62 HDL Cholesterol 57 Vitamin B12 745 25-OH Vitamin D Total 45.3 TSH 0.95 Ur Specific [place] 1.020 Urine Protein 100 (2+) H Urine Glucose (UA) Negative Urine Blood Negative Assessment and Plan Assessment & Plan (1) Coronary artery disease: Comment: S/P elective cardiac catheterization in January 2018 with PCI of the mid and proximal LAD at the site of prior stent Repeat nuclear stress testing was negative but Cardiology recommended continuing Clopidogrel for at least a few years due to his history of overlapping stenting Code(s): I25.10 - Atherosclerotic heart disease of [place] coronary artery without angina pectoris Qualifiers: Associated angina: without angina Coronary Disease-Associated Artery/Lesion type: [place] artery [place] vs. transplanted heart: [place] heart Qualified Code(s): I25.10 - Atherosclerotic heart disease of [place] coronary artery without angina pectoris Plan: Patient currently remains asymptomatic Continue Metoprolol ER 25 mg once a day and Aspirin 81 mg QD; Clopidogrel was stopped 1 year after PCI Follow-up with cardiology as scheduled (2) Pure hypercholesterolemia: Code(s): E78.00 - Pure hypercholesterolemia, unspecified Plan: Results of his labs done a couple of days ago reviewed and discussed with patient Reinforced low cholesterol diet Continue Atorvastatin 80 mg QD Will recheck his labs and fasting lipids in 4 months for follow-up (3) 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: Code(s): 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.3 - Thalassemia minor Plan: Is primarily the reason for his chronic microcytic anemia - MCV is consistently < 80 and his iron function studies have all been normal when checked in the past Hgb electrophoresis done in February 2022 confirmed (+) beta thalassemia trait No intervention is needed for this condition aside from routine monitoring of his CBC for any untoward or unexpected changes (4) Microcytic hypochromic anemia: Code(s): D50.9 - Iron deficiency anemia, unspecified Plan: Patient had a colonoscopy done last year that reportedly came back normal Anemia is most likely due to thalassemia trait, as iron function studies were normal when checked a few times in the past Hgb electrophoresis done in February 2022 confirmed (+) beta thalassemia trait (5) Peripheral polyneuropathy: Code(s): G62.9 - Polyneuropathy, unspecified Plan: Was on Amitriptyline 25 mg Q HS in the past but patient stopped taking this a while back as he felt that it was not really helping much Is currently okay with not taking anything for this - states that his symptoms are mostly tolerable (6) Spondylosis of lumbar region without myelopathy or radiculopathy: Code(s): M47.816 - Spondylosis without myelopathy or radiculopathy, lumbar region Plan: Reinforced activity and weight-lifting restrictions Follow up with Neurosurgery (Dr. Guerra) as scheduled -? has been advised by Dr. Guerra in the past that surgery will not help him and that his on and off right lower back pain is most likely radicular pain from his lumbar spine but feels that he will need surgery again on his lower back at some point if his symptoms progress Have advised patient that if he wishes or if his symptoms continue to progress or get worse, we can refer him to Pain Management to help him explore treatment options to help him control his pain (7) Constipation: Code(s): K59.00 - Constipation, unspecified Qualifiers: Constipation type: unspecified constipation type Qualified Code(s): K59.00 - Constipation, unspecified Plan: Encouraged increased oral fluids and dietary fiber May continue taking OTC stool softeners as needed (8) GERD without esophagitis: Code(s): K21.9 - Gastro-esophageal reflux disease without esophagitis Plan: Dietary restrictions reinforced Continue Omeprazole 20 mg QD (9) Benign prostatic hyperplasia with lower urinary tract symptoms: Code(s): N40.1 - Benign prostatic hyperplasia with lower urinary tract symptoms Qualifiers: Lower urinary tract symptom detail: unspecified Qualified Code(s): N40.1 - Benign prostatic hyperplasia with lower urinary tract symptoms Plan: Continue Finasteride 5 mg QD Follow up with urology as scheduled (10) 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: Code(s): 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 Plan: Will continue to monitor patient regularly (11) Vitamin D deficiency: Code(s): E55.9 - Vitamin D deficiency, unspecified Plan: Continue Vitamin D3 1000 units QD (12) Memory impairment: Code(s): R41.3 - Other amnesia Plan: This is per patient's , who would like for him to get prescribed something to help with his memory as she feels that he is starting to forget a lot of things frequently Patient denies this and states that he does not need to take any Rx for his memory Have advised patient's to just call back if she can convince patient to take Rx for his memory issues - would recommend Donepezil - but as patient is still not willing to take the Rx at this time, will not send in any Rx or start him on it (13) Insomnia: Code(s): G47.00 - Insomnia, unspecified Qualifiers: Insomnia type: unspecified Qualified Code(s): G47.00 - Insomnia, unspecified Plan: Sleep hygiene reinforced Plan Flu vaccine given today Follow up in 4 months Orders: Orders Complete Blood Count Auto Diff 4 Months I10 - Essential (primary) hypertension UA CC w/rflx Micro + Cult 4 Months R30.0 - Dysuria Vitamin B12 and Folate 4 Months E53.8 - Deficiency of other specified B group vitamins Influenza [id number] Immunization Today Z23 - Encounter for immunization Comprehensive [place]. Panel Fast 4 Months E78.00 - Pure hypercholesterolemia, unspecified Lipid Panel 4 Months E78.00 - Pure hypercholesterolemia, unspecified TSH reflex Free T4 4 Months E78.00 - Pure hypercholesterolemia, unspecified Vitamin D 25-OH Total 4 Months E55.9 - Vitamin D deficiency, unspecified Coding Level of Care Code Est Pt Level 4 (11954) Diagnoses Coronary artery disease involving [place] coronary artery of [place] heart without angina pectoris I25.10 Associated angina: without angina Coronary Disease-Associated Artery/Lesion type: [place] artery [place] vs. 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
[2023-10-07 13:24] VITALS: BP 130/72; PULSE 54; O2SAT 98; BMI 24.0
== END 2023-10-07 14:23 | disposition home or self-care (01) ==
PROVIDERS: PCP Internal Medicine; Visit Provider Internal Medicine
DX: Z23 Encounter for immunization (principal)
CPT/HCPCS: 90471; 90686; 99214

== ENCOUNTER 2023-11-27 11:07 | Outpatient (AMB) | payer MEDICARE, SELFPAY ==
--- NOTE | 2023-11-27 11:17 | MHC.OFFVIS ---
Intake Intake Visit Reasons: medication review Intake Note: Patient is Present for Follow Up Medication review Urology Medication: Finasteride ( Patient needs refill) Antibiotic Allergies: None Blood Thinners: None Allergies No Known Allergies Allergy (Verified 10/07/23 13:49) HPI HPI Comments History of Present Illness Details Tiago is a pleasant male. He is a patient of Dr. Echavarria. 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 GERD without esophagitis Constipation Spondylosis of lumbar region without myelopathy or radiculopathy Peripheral polyneuropathy Pure hypercholesterolemia Coronary artery disease Surgical History History of cardiac catheterization Stented coronary artery Family History Father Medical history unknown Mother Medical history unknown Family/Other Thalassemia Social History Housing: House Alcohol intake: never Patient Tobacco Use Status: Former Tobacco user e-Cigarette/Vaping Use: Never Used Second Hand Smoke Exposure: Yes service: No Current occupational status: retired Cognitive needs: No Hearing needs: No Vision needs: Yes Review of Systems Const Denies chills and Denies fever(s) Card Reports no additional complaints and Denies syncope Resp Denies cough GI Denies abdominal pain and Denies heartburn Reports as per HPI and Denies change in libido Neuro Denies syncope Psych Denies change in libido Endo Denies change in libido Physical Exam Const General: cooperative, healthy appearing, comfortable and no acute distress Orientation/consciousness: patient oriented x3 HEENT Face and sinus: Yes normal facial exam Mouth: moist mucous membranes Neck Neck: Yes normal visual inspection, Yes full ROM and Yes trachea midline Chest Chest palpation & inspection: normal inspection of the chest Resp Effort & Inspection: normal respiratory effort, able to speak in complete sentences and no respiratory distress GI Inspection: Yes normal to inspection Back/Spine/Pelvis Cervical Spine: normal cervical lordosis Thoracic/Lumbar Spine: thoracic and lumbar spine normal to inspection Skin General skin exam: no rashes or lesions noted Neuro General: patient oriented x3, gait normal, tone normal and moves all extremities Extrem General: Yes normal to inspection and Yes capillary refill normal Assessment & Plan Assessment & Plan (1) Nocturia more than twice per night: Code(s): R35.1 - Nocturia Plan Twelve month follow-up Patient Instructions: Imaging studies, laboratory and physical exam results were discussed and reviewed in detail. No major barriers to patient understanding were identified. An opportunity to ask questions regarding the treatment plan was provided. All questions were answered. The patient expressed understanding and agreement with the above treatment plan. The patient is aware they should contact our office by phone for worsening of their current condition or the appearance of new urologic symptoms. Compliance is encouraged with any medications and followup testing that is ordered. It is a privilege to participate in the urologic care of your patient. If you have any questions or concerns regarding treatment for the above conditions, or other urologic issues, please do not hesitate to contact me. The office telephone contact is [phone]. This note is constructed using voice recognition software. While every effort has been made to ensure accuracy tissue packer errors may have been included. Yours sincerely, Dr Mario Argueta MD, [facility] - Urology Providers of Expert, Compassionate Care for the Genitourinary System Coding Level of Care Code Est Pt Level 3 (57960) Diagnoses Nocturia more than twice per night R35.1
== END 2023-11-27 11:51 | disposition home or self-care (01) ==
LOC: HO.HUSH 11:07
PROVIDERS: PCP Internal Medicine; Visit Provider Urology
DX: R35.1 Nocturia (principal)
CPT/HCPCS: 99213

== ENCOUNTER → 2023-11-27 11:07 | Outpatient (BNVA) | payer MEDICARE, SELFPAY | PROVIDERS: PCP Internal Medicine; Visit Provider Urology | DX: R35.1 Nocturia (principal) | CPT/HCPCS: 99212 ==

== ENCOUNTER 2024-02-17 08:27 | Outpatient (REF) | payer MEDICARE, SELFPAY ==
[2024-02-17 08:43] LABS: MANUAL DIFF FLAG NO
[2024-02-17 09:01] LABS: Basophils Percent Auto 0.8 % (0-2); Eosinophils Absolute Auto 0.1 X10*3/uL (0.0-0.4); Eosinophils Percent Auto 2.3 % (0-4); Hematocrit 36.3 % (42.0-52.0); Hemoglobin 11.2 g/dl (14.0-18.0); Imm Gran Abs Auto 0.02 X10*3/uL (0.00-0.03); Imm Gran Pct Auto 0.4 % (0.0-0.4); Lymphocytes Absolute Auto 1.1 X10*3/uL (1.2-4.9); Lymphocytes Percent Auto 21.9 % (20-40); Mean Corpuscular HGB Conc 30.9 g/dl (31.0-36.0); Mean Corpuscular Hemoglobin 20.1 pg (27.0-33.0); Mean Corpuscular Volume 65.3 fL (80.0-98.0); Mean Platelet Volume 10.6 fL (9.4-12.4); Monocytes Absolute Auto 0.4 X10*3/uL (0.1-1.2); Monocytes Percent Auto 8.9 % (2-11); Neutrophils Absolute Auto 3.2 x10*3/uL (2.0-8.3); Neutrophils Percent Auto 65.7 % (45-73); Platelet Count 154 X10*3/uL (160-400); Red Blood Count 5.56 X10*6/uL (4.60-5.80); Red Cell Distribution Width 15.6 % (11.0-16.0); White Blood Count 4.9 X10*3/uL (4.8-10.8)
[2024-02-17 09:03] LABS: Appearance Urine Clear; Color Urine Yellow; Glucose Urine UA Negative (Negative); Leukocyte Esterase Urine Negative (Negative); Nitrite Urine Negative (Negative); Specific Gravity - Urine 1.015 (1.005-1.025); UMIC TRIGGER UACC YES; Urine Blood Negative (Negative); Urine Ketones Negative (Negative); Urine Protein 30 (1+) mg/dL (Neg-Trace)
[2024-02-17 09:13] LABS: Bacteria Urine None Seen (None Seen); Hyaline Casts Urine 0-2 /LPF (0-2); RBC Urine 0-2 /HPF (0-2); Squamous Epithelial Cell Urine 0-2 /HPF (0-2); WBC Urine 0-5 /HPF (0-5)
[2024-02-17 09:40] LABS: Alanine Aminotransferase 18 U/L (0-40); Albumin Level 4.1 g/dL (3.5-5.0); Alkaline Phosphatase 137 U/L (39-117); Anion Gap 9 (12-20); Aspartate Amino Transferase 25 U/L (5-37); Bilirubin Total 1.2 mg/dL (0.0-1.0); Blood Urea Nitrogen 20 mg/dL (9-16); Calcium 9.8 mg/dL (8.4-10.2); Carbon Dioxide 29 mmol/L (22-29); Chloride 107 mmol/L (96-108); Cholesterol 128 mg/dL (<200); Estimated Glomerular Filt Rate > 60; Glucose Fasting 97 mg/dL (60-99); HDL Cholesterol 53 mg/dL (>40); LDL Cholesterol Calculated 60 mg/dL (<100); Potassium 4.3 mmol/L (3.3-5.1); Sodium 141 mmol/L (135-145); Triglycerides 78 mg/dL (<150)
[2024-02-17 09:58] LABS: TSH reflex Free T4 1.88 uIU/mL (0.32-4.0); Vitamin D 25-OH Total 41.1 ng/mL (>30)
[2024-02-17 10:53] LABS: Folate 15.6 ng/mL (> or = 4.0); Vitamin B12 731 pg/mL (200-900)
== END 2024-02-17 08:28 | disposition home or self-care (01) ==
LOC: HO.LAB 08:27
PROVIDERS: PCP Internal Medicine; Visit Provider Internal Medicine
DX: E78.00 Pure hypercholesterolemia, unspecified (principal); E55.9 Vitamin D deficiency, unspecified; I10 Essential (primary) hypertension; E53.8 Deficiency of other specified B group vitamins; R30.0 Dysuria
CPT/HCPCS: 36415; 80053; 80061; 81001; 81003; 82306; 82607; 82746; 84443; 85025

== ENCOUNTER 2024-02-17 15:14 | Outpatient (AMB) | payer MEDICARE, SELFPAY ==
--- NOTE | 2024-02-17 15:16 | A.OFFPC_ITS ---
Vital Signs 02/17/24 15:19 Height 5 ft 7 in Weight 159 lb 2 oz BMI 24.9 BP 110/68 Blood Pressure Location Lt brachial Position Sitting Pulse 53 Pulse Source Pulse Oximeter Pulse Oximetry (%) 97 Oxygen Delivery Method Room Air Intake Visit Reasons: 4mth f/u Intake Note: Patient is here to follow up on CAD, OA, Hyperlipidemia, Beta Thalassemia. Palletizer Required: No Level Vial Setter: Present Allergies No Known Allergies Allergy (Verified 06/22/24 13:58) Medication List - Last Reconciled 06/27/24 by Francis Echavarria MD diphenhydramine HCl (Allergy Relief (diphenhydramine)) 25 mg PO TID PRN donepezil 5 mg PO BEDTIME 30 days finasteride 5 mg PO DAILY 90 days folic acid 1 mg PO DAILY metoprolol succinate ER 25 mg PO DAILY omeprazole 20 mg PO DAILY Tobacco use date assessed: 02/17/24 Fall risk assessment: No Falls in past year Last assessed Fall Risk: 02/17/24 Dental Screening Dental Screen Date: 02/17/24 Did you have a dental visit in the last 12 months?: Yes Did you have a dental problem in the last 6 months where you did not have access to dental care?: No Was dental information given to patient?: Patient has dentist HPI 4mt f/u HPI Details Patient comes in today for his follow up visit States that he feels okay He denies any headaches or dizziness Denies any chest pains, no increased SOB No nausea/vomiting, no abdominal pain No change in bowel habits noted He had his follow up labs done earlier this morning - to discuss his results [facility] Medical History (Updated 06/22/24 @ 16:30 by Francis Echavarria MD) Beta thalassemia trait Epidermal inclusion cyst Overweight (BMI 25.0-29.9) Insomnia Vitamin D deficiency 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 Benign prostatic hyperplasia with lower urinary tract 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 GERD without esophagitis Constipation Spondylosis of lumbar region without myelopathy or radiculopathy Peripheral polyneuropathy Pure hypercholesterolemia Coronary artery disease Surgical History History of cardiac catheterization Stented coronary artery Family History Father Medical history unknown Mother Medical history unknown Family/Other Thalassemia Social History Housing: House Alcohol intake: never Patient Tobacco Use Status: Former Tobacco user e-Cigarette/Vaping Use: Never Used Second Hand Smoke Exposure: Yes service: No Current occupational status: retired Cognitive needs: No Hearing needs: No Vision needs: Yes Questionnaire PHQ-9 Over the last 2 weeks, how often have you been bothered by any of the following problems? 1. Little interest or pleasure in doing things: not at all 2. Feeling down, depressed, or hopeless: not at all 3. Trouble falling or staying asleep, or sleeping too much: not at all 4. Feeling tired or having little energy: not at all 5. Poor appetite or overeating: not at all 6. Feeling bad about yourself - or that you are a failure or have let yourself or your family down: not at all 7. Trouble concentrating on things, such as reading the newspaper or watching television: not at all 8. Moving or speaking so slowly that other people could have noticed. Or the opposite - being so fidgety or restless that you have been moving around a lot more than usual: not at all 9. Thoughts that you would be better off or of hurting yourself in some way: not at all Total score: 0 Depression Screening Interpretation: Negative Depression Screening Done: Yes 39191 - PHQ-9 Billing: Yes Source: Developed by Drs. Marlon Mota, Tequila Swain, Yuriy Mosquera and colleagues, with an educational rose from [employer]. Thrive Questionnaire Date Thrive assessed: 02/17/24 I am a: Patient What is your living situation today?: I have a steady place to live Within the past 12 months, did the food you bought not last and you didn't have the money to get more?: Never true Within the past 12 months, did you worry whether your food would run out before you got money to buy more?: Never true Do you have trouble paying for medicines?: No Do you have trouble getting transportation to medical appointments?: No Do you have trouble paying your heating and electricity bill?: No Do you have trouble taking care of your child, family member or friend?: No Do you have trouble with day-to-day activities such as bathing, preparing meals, shopping, managing finances, etc.?: No Are you currently unemployed and looking for a job?: No Are you interested in more education?: No Currently or been in a relationship where the following occur: no concerns reported THRIVE Score: 0 AUDIT C Alcohol Use Questionnaire (AUDIT-C) 1. How often do you have a drink containing alcohol?: Never 3. How often do you have six or more drinks on one occasion?: Never Total Score: 0 Score Reviewed/Action Taken: Yes JOSETTE-7 AMB Questionnaire JOSETTE-7 Date JOSETTE - 7 assessed: 02/17/24 Feeling nervous, anxious, or on edge: 0 = Not at all Not being able to stop or control worryin = Not at all Worrying too much about different things: 0 = Not at all Trouble relaxin = Not at all Being so restless that it is hard to sit still: 0 = Not at all Becoming easily annoyed or irritable: 0 = Not at all Feeling afraid as if something awful might happen: 0 = Not at all Total JOSETTE-7 score (0-4 normal; 5-9 mild; 10-14 moderate; 15-21 severe): 0 Source: Developed by Drs. Marlon Mota, Tequila Swain, Yuriy Mosquera and colleagues, with an educational rose from [employer]. Review of Systems Const Denies chills, Denies fatigue, Denies fever(s) and Denies headache(s) ENT Details: Is hard of hearing - states that he has something to wear to help with his hearing but he does not like having them on Denies dysphagia, Denies dizziness, Denies otalgia, Denies headache(s), Denies neck pain, Denies odynophagia and Denies sore throat Card Denies chest pain, Denies palpitations and Denies dyspnea Resp Denies cough and Denies dyspnea GI Denies abdominal pain, Denies hematochezia, Denies constipation, Denies dysphagia, Denies heartburn, Denies diarrhea, Denies nausea, Denies odynophagia and Denies vomiting Denies dysuria, Denies nocturia and Denies urinary frequency Musc Reports back pain (over the lower back, off and on) and Denies neck pain Skin/Breast Denies rash Neuro Denies dizziness and Denies headache(s) Endo Denies fatigue and Denies palpitations Physical exam (Primary Care) Vital Signs: Last Vital Signs Pulse 53 02/17/24 15:19 BP 110/68 02/17/24 15:19 Pulse Ox 97 02/17/24 15:19 Oxygen Delivery Method Room Air 02/17/24 15:19 BMI result Body Mass Index 24.9 Tobacco/Smoking Status: Tobacco use Status Tobacco use date assessed 02/17/24 02/17/24 15:19 Patient Tobacco Use Status Former Tobacco user 02/17/24 15:19 e-Cigarette/Vaping Use Never Used 02/17/24 15:19 PHQ-9: PHQ-9 Score PHQ-9: Total score 0 02/17/24 16:05 Depression Screening Interpretation: Negative Thrive Assessment: Date of Thrive Assessment Date Thrive assessed 02/17/24 02/17/24 15:19 Currently or been in a relationship where the following occur: no concerns reported Const General: no acute distress and alert HENMT Ears: TM's normal bilaterally and EAC's normal Throat: Yes posterior oropharynx normal and Yes tonsils normal (no TP congestion) Neck Neck: Yes no lymphadenopathy and Yes supple Thyroid: Thyroid normal Resp Auscultation: clear to auscultation bilaterally, no rales and no wheezes Cardio Rate: regular rate Rhythm: regular rhythm Heart sounds: no murmurs GI Palpation (GI): Soft to palpation and nontender Auscultation: normal bowel sounds General: Yes no CVA tenderness Back/Spine/Pelvis Back: no CVA tenderness Thoracic/Lumbar Spine: lumbar spinal tenderness Skin Rashes: no rashes Extrem General: Yes no clubbing, cyanosis or edema Results Reviewed Results Reviewed: Laboratory Tests 02/17/24 02/17/24 02/17/24 08:35 08:35 08:40 WBC 4.9 Hgb 11.2 L Hct 36.3 L Plt Count 154 L Sodium 141 Potassium 4.3 Creatinine 1.07 Estimated GFR > 60 Fasting Glucose 97 Calcium 9.8 AST 25 ALT 18 Triglycerides 78 Cholesterol 128 LDL Cholesterol, Calc 60 HDL Cholesterol 53 Vitamin B12 731 25-OH Vitamin D Total TSH Ur Specific [place] 1.015 Urine Protein 30 (1+) H Urine Glucose (UA) Negative Urine Blood Negative Urine Nitrite Negative Ur Leukocyte Esterase Negative 02/17/24 02/17/24 08:40 08:40 WBC Hgb Hct Plt Count Sodium Potassium Creatinine Estimated GFR Fasting Glucose Calcium AST ALT Triglycerides Cholesterol LDL Cholesterol, Calc HDL Cholesterol Vitamin B12 25-OH Vitamin D Total 41.1 TSH 1.88 Ur Specific [place] Urine Protein Urine Glucose (UA) Urine Blood Urine Nitrite Ur Leukocyte Esterase Assessment and Plan Assessment & Plan (1) Coronary artery disease: Comment: S/P elective cardiac catheterization in January 2018 with PCI of the mid and proximal LAD at the site of prior stent Repeat nuclear stress testing was negative but Cardiology recommended continuing Clopidogrel for at least a few years due to his history of overlapping stenting Code(s): I25.10 - Atherosclerotic heart disease of [place] coronary artery without angina pectoris Qualifiers: Associated angina: without angina Coronary Disease-Associated Artery/Lesion type: [place] artery [place] vs. transplanted heart: [place] heart Qualified Code(s): I25.10 - Atherosclerotic heart disease of [place] coronary artery without angina pectoris Plan: Patient currently remains asymptomatic Continue Metoprolol ER 25 mg once a day and Aspirin 81 mg QD; Clopidogrel was stopped 1 year after PCI Follow-up with cardiology as scheduled (2) Pure hypercholesterolemia: Code(s): E78.00 - Pure hypercholesterolemia, unspecified Plan: Results of his labs done earlier this morning reviewed and discussed with patient Reinforced low cholesterol diet Continue Atorvastatin 80 mg QD Will recheck his labs and fasting lipids in 4 months for follow-up (3) 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: Code(s): D56.3 - Thalassemia minor Plan: Is primarily the reason for his chronic microcytic anemia - MCV is consistently < 80 and his iron function studies have all been normal when checked in the past Hgb electrophoresis done in February 2022 confirmed (+) beta thalassemia trait No intervention is needed for this condition aside from routine monitoring of his CBC for any unexpected changes (4) Microcytic hypochromic anemia: Code(s): D50.9 - Iron deficiency anemia, unspecified Plan: Patient had a colonoscopy done last year that reportedly came back normal Anemia is most likely due to thalassemia trait, as iron function studies were normal when checked a few times in the past Hgb electrophoresis done in February 2022 confirmed (+) beta thalassemia trait (5) Peripheral polyneuropathy: Code(s): G62.9 - Polyneuropathy, unspecified Plan: Was on Amitriptyline 25 mg Q HS in the past but patient stopped taking this a while back as he felt that it was not really helping much Is currently okay with not taking anything for this - states that his symptoms are mostly tolerable (6) Spondylosis of lumbar region without myelopathy or radiculopathy: Code(s): M47.816 - Spondylosis without myelopathy or radiculopathy, lumbar region Plan: Reinforced activity and weight-lifting restrictions Follow up with Neurosurgery (Dr. Guerra) as scheduled -? has been advised by Dr. Guerra in the past that surgery will not help him and that his on and off right lower back pain is most likely radicular pain from his lumbar spine but feels that he will need surgery again on his lower back at some point if his symptoms progress Have advised patient that if he wishes or if his symptoms continue to progress or get worse, we can refer him to Pain Management to help him explore treatment options to help him control his pain (7) GERD without esophagitis: Code(s): K21.9 - Gastro-esophageal reflux disease without esophagitis Plan: Dietary restrictions reinforced Continue Omeprazole 20 mg QD (8) Benign prostatic hyperplasia with lower urinary tract symptoms: Code(s): N40.1 - Benign prostatic hyperplasia with lower urinary tract symptoms Qualifiers: Lower urinary tract symptom detail: unspecified Qualified Code(s): N40.1 - Benign prostatic hyperplasia with lower urinary tract symptoms Plan: Continue Finasteride 5 mg QD Follow up with urology as scheduled (9) 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: Code(s): 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 Plan: Will continue to monitor patient regularly (10) Memory impairment: Code(s): R41.3 - Other amnesia Plan: This is per patient's , who would like for him to get prescribed something to help with his memory as she feels that he is starting to forget a lot of things frequently Will try starting patient on a trial of Donepezil 5 mg Q HS (11) Insomnia: Code(s): G47.00 - Insomnia, unspecified Qualifiers: Insomnia type: unspecified Qualified Code(s): G47.00 - Insomnia, unspecified Plan: Sleep hygiene reinforced Plan Follow up in 4 months Orders: Orders Complete Blood Count Auto Diff 4 Months D64.9 - Anemia, unspecified Comprehensive [place]. Panel Fast 4 Months E78.00 - Pure hypercholesterolemia, unspecified Lipid Panel 4 Months E78.00 - Pure hypercholesterolemia, unspecified TSH reflex Free T4 4 Months E78.00 - Pure hypercholesterolemia, unspecified UA CC w/rflx Micro + Cult 4 Months R30.0 - Dysuria Vitamin D 25-OH Total 4 Months E55.9 - Vitamin D deficiency, unspecified Medications: New donepezil 5 mg PO BEDTIME 30 tabs 3RF 30 days R41.89 - Other symptoms and signs involving cognitive functions and awareness Coding Level of Care Code Est Pt Level 4 (39567) Diagnoses Coronary artery disease involving [place] coronary artery of [place] heart without angina pectoris I25.10 Associated angina: without angina Coronary Disease-Associated Artery/Lesion type: [place] artery [place] vs. 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
[2024-02-17 15:19] VITALS: BP 110/68; PULSE 53; O2SAT 97; BMI 24.9
== END 2024-02-17 16:17 | disposition home or self-care (01) ==
PROVIDERS: PCP Internal Medicine; Visit Provider Internal Medicine
DX: I25.10 Atherosclerotic heart disease of native coronary artery without angina pectoris (principal); E78.00 Pure hypercholesterolemia, unspecified; D56.3 Thalassemia minor; D50.9 Iron deficiency anemia, unspecified; G62.9 Polyneuropathy, unspecified; M47.816 Spondylosis without myelopathy or radiculopathy, lumbar region; K21.9 Gastro-esophageal reflux disease without esophagitis; N40.1 Benign prostatic hyperplasia with lower urinary tract symptoms; M88.862 Osteitis deformans of left lower leg; R41.3 Other amnesia; G47.00 Insomnia, unspecified
CPT/HCPCS: 99214

== ENCOUNTER 2024-06-21 08:22 | Outpatient (REF) | payer MEDICARE, SELFPAY ==
[2024-06-21 08:39] LABS: MANUAL DIFF FLAG NO
[2024-06-21 08:48] LABS: Basophils Percent Auto 0.8 % (0-2); Eosinophils Absolute Auto 0.1 X10*3/uL (0.0-0.4); Eosinophils Percent Auto 2.2 % (0-4); Hematocrit 36.3 % (42.0-52.0); Hemoglobin 11.3 g/dl (14.0-18.0); Imm Gran Abs Auto 0.02 X10*3/uL (0.00-0.03); Imm Gran Pct Auto 0.4 % (0.0-0.4); Lymphocytes Absolute Auto 0.9 X10*3/uL (1.2-4.9); Lymphocytes Percent Auto 18.8 % (20-40); Mean Corpuscular HGB Conc 31.1 g/dl (31.0-36.0); Mean Corpuscular Hemoglobin 20.4 pg (27.0-33.0); Mean Corpuscular Volume 65.4 fL (80.0-98.0); Mean Platelet Volume 9.3 fL (9.4-12.4); Monocytes Absolute Auto 0.4 X10*3/uL (0.1-1.2); Monocytes Percent Auto 8.9 % (2-11); Neutrophils Absolute Auto 3.4 x10*3/uL (2.0-8.3); Neutrophils Percent Auto 68.9 % (45-73); Platelet Count 132 X10*3/uL (160-400); Red Blood Count 5.55 X10*6/uL (4.60-5.80); Red Cell Distribution Width 16.1 % (11.0-16.0)
[2024-06-21 09:25] LABS: Alanine Aminotransferase 16 U/L (0-40); Alkaline Phosphatase 122 U/L (39-117); Anion Gap 10 (12-20); Aspartate Amino Transferase 23 U/L (5-37); Bilirubin Total 1.3 mg/dL (0.0-1.0); Blood Urea Nitrogen 16 mg/dL (9-16); Calcium 9.5 mg/dL (8.4-10.2); Carbon Dioxide 27 mmol/L (22-29); Chloride 108 mmol/L (96-108); Cholesterol 118 mg/dL (<200); Estimated Glomerular Filt Rate 58; Glucose Fasting 98 mg/dL (60-99); HDL Cholesterol 50 mg/dL (>40); LDL Cholesterol Calculated 55 mg/dL (<100); Sodium 141 mmol/L (135-145); Total Protein 6.6 g/dL (6.5-8.0); Triglycerides 67 mg/dL (<150)
[2024-06-21 09:53] LABS: TSH reflex Free T4 1.97 uIU/mL (0.32-4.0); Vitamin D 25-OH Total 48.9 ng/mL (>30)
[2024-06-21 10:02] LABS: Appearance Urine Clear; Color Urine Yellow; Glucose Urine UA Negative (Negative); Leukocyte Esterase Urine Negative (Negative); Nitrite Urine Negative (Negative); UMIC TRIGGER UACC YES; Urine Blood Negative (Negative); Urine Ketones Negative (Negative); Urine Protein 30 (1+) mg/dL (Neg-Trace)
[2024-06-21 10:32] LABS: Bacteria Urine None Seen (None Seen); Hyaline Casts Urine 0-2 /LPF (0-2); RBC Urine 0-2 /HPF (0-2); Squamous Epithelial Cell Urine 0-2 /HPF (0-2); WBC Urine 0-5 /HPF (0-5)
== END 2024-06-21 08:23 | disposition home or self-care (01) ==
LOC: HO.LAB 08:22
PROVIDERS: PCP Internal Medicine; Visit Provider Internal Medicine
DX: D64.9 Anemia, unspecified (principal); E55.9 Vitamin D deficiency, unspecified; E78.00 Pure hypercholesterolemia, unspecified
CPT/HCPCS: 36415; 80053; 80061; 81001; 81003; 82306; 84443; 85025

== ENCOUNTER 2024-06-22 13:35 | Outpatient (AMB) | payer MEDICARE, SELFPAY ==
[2024-06-22 13:32] VITALS: BP 112/56; PULSE 50; O2SAT 97; BMI 23.0
--- NOTE | 2024-06-22 13:32 | A.OFFPC_ITS ---
Vital Signs 06/22/24 13:32 Height 5 ft 7 in Weight 147 lb 0.6 oz BMI 23.0 BP 112/56 L Blood Pressure Location Lt brachial Position Sitting Pulse 50 Pulse Source Pulse Oximeter Pulse Oximetry (%) 97 Oxygen Delivery Method Room Air Intake Visit Reasons: 4mth f/u Allergies No Known Allergies Allergy (Verified 06/22/24 13:58) Medication List - Last Reconciled 06/22/24 by Francis Echavarria MD donepezil 5 mg PO BEDTIME 30 days finasteride 5 mg PO DAILY 90 days folic acid 1 mg PO DAILY metoprolol succinate ER 25 mg PO DAILY omeprazole 20 mg PO DAILY Tobacco use date assessed: 02/17/24 Fall risk assessment: No Falls in past year Last assessed Fall Risk: 06/22/24 Dental Screening Dental Screen Date: 02/17/24 HPI 4mth f/u HPI Details Patient comes in today for his follow up visit States that he feels okay although he has just completely recovered from some poison tara rash States that he was using some OTC topical spray recommended by his local pharmacist but he did not feel that the medication helped much and would like to know what he can take in case he gets poison tara again He denies any headaches or dizziness Denies any chest pains, no SOB No nausea/vomiting, no abdominal pain No change in bowel habits noted He had his follow up labs done yesterday - to discuss his results [facility] Medical History (Updated 06/22/24 @ 16:30 by Francis Echavarria MD) Beta thalassemia trait Epidermal inclusion cyst Overweight (BMI 25.0-29.9) Insomnia Vitamin D deficiency 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 Benign prostatic hyperplasia with lower urinary tract 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 GERD without esophagitis Constipation Spondylosis of lumbar region without myelopathy or radiculopathy Peripheral polyneuropathy Pure hypercholesterolemia Coronary artery disease Surgical History History of cardiac catheterization Stented coronary artery Family History Father Medical history unknown Mother Medical history unknown Family/Other Thalassemia Social History Housing: House Alcohol intake: never Patient Tobacco Use Status: Former Tobacco user e-Cigarette/Vaping Use: Never Used Second Hand Smoke Exposure: Yes service: No Current occupational status: retired Cognitive needs: No Hearing needs: No Vision needs: Yes Questionnaire Thrive Questionnaire Date Thrive assessed: 02/17/24 AUDIT C Alcohol Use Questionnaire (AUDIT-C) 1. How often do you have a drink containing alcohol?: Never Total Score: 0 JOSETTE-7 AMB Questionnaire JOSETTE-7 Date JOSETTE - 7 assessed: 02/17/24 Source: Developed by Drs. Marlon Mota, Tequila Swain, Yruiy Mosquera and colleagues, with an educational rose from [employer]. Review of Systems Const Denies chills, Denies fatigue, Denies fever(s) and Denies headache(s) ENT Details: Is hard of hearing - states that he has something to wear to help with his hearing but he does not like having them on Denies dysphagia, Denies dizziness, Denies otalgia, Denies headache(s), Denies neck pain, Denies odynophagia and Denies sore throat Card Denies chest pain, Denies palpitations and Denies dyspnea Resp Denies cough and Denies dyspnea GI Denies abdominal pain, Denies hematochezia, Denies constipation, Denies dysphagia, Denies heartburn, Denies diarrhea, Denies nausea, Denies odynophagia and Denies vomiting Denies dysuria, Denies nocturia and Denies urinary frequency Musc Reports back pain (over the lower back, off and on) and Denies neck pain Skin/Breast Denies rash Neuro Denies dizziness and Denies headache(s) Endo Denies fatigue and Denies palpitations Physical exam (Primary Care) Vital Signs: Last Vital Signs Pulse 50 06/22/24 13:32 BP 112/56 L 06/22/24 13:32 Pulse Ox 97 06/22/24 13:32 Oxygen Delivery Method Room Air 06/22/24 13:32 BMI result Body Mass Index 23.0 Tobacco/Smoking Status: Tobacco use Status Tobacco use date assessed 02/17/24 06/22/24 13:32 Patient Tobacco Use Status Former Tobacco user 06/22/24 13:32 e-Cigarette/Vaping Use Never Used 06/22/24 13:32 Thrive Assessment: Date of Thrive Assessment Date Thrive assessed 02/17/24 06/22/24 13:32 Const General: no acute distress and alert HENMT Ears: TM's normal bilaterally and EAC's normal Throat: Yes posterior oropharynx normal and Yes tonsils normal (no TP congestion) Neck Neck: Yes no lymphadenopathy and Yes supple Thyroid: Thyroid normal Resp Auscultation: clear to auscultation bilaterally, no rales and no wheezes Cardio Rate: regular rate Rhythm: regular rhythm Heart sounds: no murmurs GI Palpation (GI): Soft to palpation and nontender Auscultation: normal bowel sounds General: Yes no CVA tenderness Back/Spine/Pelvis Back: no CVA tenderness Thoracic/Lumbar Spine: lumbar spinal tenderness Skin Rashes: no rashes Extrem General: Yes no clubbing, cyanosis or edema Results Reviewed Results Reviewed: Laboratory Tests 06/21/24 06/21/24 08:38 09:32 WBC 5.0 Hgb 11.3 L Hct 36.3 L Plt Count 132 L Sodium 141 Potassium 4.0 Creatinine 1.19 Estimated GFR 58 Fasting Glucose 98 Calcium 9.5 AST 23 ALT 16 Triglycerides 67 Cholesterol 118 LDL Cholesterol, Calc 55 HDL Cholesterol 50 25-OH Vitamin D Total 48.9 TSH 1.97 Ur Specific [employer] 1.010 Urine Protein 30 (1+) H Urine Glucose (UA) Negative Urine Blood Negative Urine Nitrite Negative Ur Leukocyte Esterase Negative Assessment and Plan Assessment & Plan (1) Coronary artery disease: Comment: S/P elective cardiac catheterization in January 2018 with PCI of the mid and proximal LAD at the site of prior stent Repeat nuclear stress testing was negative but Cardiology recommended continuing Clopidogrel for at least a few years due to his history of overlapping stenting Code(s): I25.10 - Atherosclerotic heart disease of [place] coronary artery without angina pectoris Qualifiers: Coronary Disease-Associated Artery/Lesion type: [place] artery [place] vs. transplanted heart: [place] heart Associated angina: without angina Qualified Code(s): I25.10 - Atherosclerotic heart disease of [place] coronary artery without angina pectoris Plan: Patient currently remains asymptomatic from a cardiac standpoint Continue Metoprolol ER 25 mg QD and Aspirin 81 mg QD; Clopidogrel was stopped 1 year after PCI Follow-up with cardiology as scheduled (2) Pure hypercholesterolemia: Code(s): E78.00 - Pure hypercholesterolemia, unspecified Plan: Results of his labs done yesterday reviewed and discussed with patient Reinforced low cholesterol diet Continue Atorvastatin 80 mg QD Will recheck his labs and fasting lipids in 4 months for follow-up (3) 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: Code(s): D56.3 - Thalassemia minor Plan: This is primarily the reason for his chronic microcytic anemia - MCV is consistently < 80 and his iron function studies have all been normal when check ed in the past Hgb electrophoresis done in February 2022 confirmed (+) beta thalassemia trait No intervention is needed for this condition aside from routine monitoring of his CBC for any untoward or unexpected changes (4) Microcytic hypochromic anemia: Code(s): D50.9 - Iron deficiency anemia, unspecified Plan: Patient had a colonoscopy done last year that reportedly came back normal His anemia is most likely due to thalassemia trait, as iron function studies were normal when checked a few times in the past Hgb electrophoresis done in February 2022 confirmed (+) beta thalassemia trait (5) Peripheral polyneuropathy: Code(s): G62.9 - Polyneuropathy, unspecified Plan: Patient was on Amitriptyline 25 mg Q HS in the past but he stopped taking this a while back as he felt that it was not really helping much He is currently okay with not taking anything for this, as he states that his symptoms are mostly tolerable (6) Spondylosis of lumbar region without myelopathy or radiculopathy: Code(s): M47.816 - Spondylosis without myelopathy or radiculopathy, lumbar region Plan: Reinforced activity and weight-lifting restrictions Follow up with Neurosurgery (Dr. Guerra) as scheduled -? he has been reportedly advised by Dr. Guerra in the past that surgery will not help him and that his on and off right lower back pain is most likely radicular pain from his lumbar spine but he may need surgery again on his lower back at some point if his symptoms progress Have advised patient that if he wishes or if his symptoms continue to progress or get worse, we can refer him to Pain Management to help him explore treatment options to help him control his pain better (7) Constipation: Code(s): K59.00 - Constipation, unspecified Qualifiers: Constipation type: unspecified constipation type Qualified Code(s): K59.00 - Constipation, unspecified Plan: Encouraged increased oral fluids and dietary fiber May continue taking OTC stool softeners as needed (8) GERD without esophagitis: Code(s): K21.9 - Gastro-esophageal reflux disease without esophagitis Plan: Dietary restrictions reinforced Continue Omeprazole 20 mg QD (9) 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: Code(s): 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 Plan: Will continue to monitor patient regularly (10) Vitamin D deficiency: Code(s): E55.9 - Vitamin D deficiency, unspecified Plan: Continue Vitamin D3 1000 units QD (11) Memory impairment: Code(s): R41.3 - Other amnesia Plan: This is per patient's , who has been asking for him to be prescribed something to help with his memory as she feels that he is starting to forget a lot of things frequently Patient denies this and states that he does not need to take any Rx for his memory Have advised patient's to just call back if she can convince patient to take Rx for his memory issues - would recommend Donepezil - but as patient is still not willing to take the Rx at this time, will not send in any Rx or start him on it (12) Benign prostatic hyperplasia with lower urinary tract symptoms: Code(s): N40.1 - Benign prostatic hyperplasia with lower urinary tract symptoms Qualifiers: Lower urinary tract symptom detail: unspecified Qualified Code(s): N40.1 - Benign prostatic hyperplasia with lower urinary tract symptoms Plan: Continue Finasteride 5 mg QD Follow up with urology as scheduled (13) Insomnia: Code(s): G47.00 - Insomnia, unspecified Qualifiers: Insomnia type: unspecified Qualified Code(s): G47.00 - Insomnia, unspecified Plan: Sleep hygiene reinforced Plan Follow up in 4 months Orders: Orders Comprehensive [place]. Panel Fast 4 Months E78.00 - Pure hypercholesterolemia, unspecified UA CC w/rflx Micro + Cult 4 Months R30.0 - Dysuria Complete Blood Count Auto Diff 4 Months D64.9 - Anemia, unspecified Lipid Panel 4 Months E78.00 - Pure hypercholesterolemia, unspecified Medications: New diphenhydramine HCl (Allergy Relief (diphenhydramine)) 25 mg PO TID PRN 30 tabs 5RF itching/rash Coding Level of Care Code Est Pt Level 4 (68192) Complex EM visit Add On G2211 Diagnoses Coronary artery disease involving [place] coronary artery of [place] heart without angina pectoris I25.10 Coronary Disease-Associated Artery/Lesion type: [place] artery [place] vs. 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
== END 2024-06-22 14:30 | disposition home or self-care (01) ==
LOC: HO.HMGH 13:35
PROVIDERS: PCP Internal Medicine; Visit Provider Internal Medicine
DX: I25.10 Atherosclerotic heart disease of native coronary artery without angina pectoris (principal); E78.00 Pure hypercholesterolemia, unspecified; D56.3 Thalassemia minor; D50.9 Iron deficiency anemia, unspecified; G62.9 Polyneuropathy, unspecified; M47.816 Spondylosis without myelopathy or radiculopathy, lumbar region; K59.00 Constipation, unspecified; K21.9 Gastro-esophageal reflux disease without esophagitis; M88.862 Osteitis deformans of left lower leg; E55.9 Vitamin D deficiency, unspecified; R41.3 Other amnesia; N40.1 Benign prostatic hyperplasia with lower urinary tract symptoms; G47.00 Insomnia, unspecified
CPT/HCPCS: 99214; G2211

== ENCOUNTER 2024-10-25 08:49 | Outpatient (REF) | payer MEDICARE, SELFPAY ==
[2024-10-25 09:20] LABS: MANUAL DIFF FLAG NO
[2024-10-25 09:50] LABS: Basophils Percent Auto 0.9 % (0-2); Eosinophils Absolute Auto 0.1 X10*3/uL (0.0-0.4); Eosinophils Percent Auto 2.5 % (0-4); Hematocrit 37.4 % (42.0-52.0); Hemoglobin 11.4 g/dl (14.0-18.0); Imm Gran Abs Auto 0.04 X10*3/uL (0.00-0.03); Imm Gran Pct Auto 0.9 % (0.0-0.4); Lymphocytes Absolute Auto 0.7 X10*3/uL (1.2-4.9); Lymphocytes Percent Auto 15.5 % (20-40); Mean Corpuscular HGB Conc 30.5 g/dl (31.0-36.0); Mean Corpuscular Hemoglobin 20.4 pg (27.0-33.0); Mean Corpuscular Volume 66.8 fL (80.0-98.0); Monocytes Absolute Auto 0.4 X10*3/uL (0.1-1.2); Monocytes Percent Auto 8.2 % (2-11); Neutrophils Absolute Auto 3.2 x10*3/uL (2.0-8.3); Platelet Count 125 X10*3/uL (160-400); Red Cell Distribution Width 15.4 % (11.0-16.0); White Blood Count 4.4 X10*3/uL (4.8-10.8)
[2024-10-25 10:31] LABS: Alanine Aminotransferase 14 U/L (0-40); Albumin Level 4.1 g/dL (3.5-5.0); Alkaline Phosphatase 124 U/L (39-117); Anion Gap 10 (12-20); Aspartate Amino Transferase 26 U/L (5-37); Bilirubin Total 0.9 mg/dL (0.0-1.0); Blood Urea Nitrogen 18 mg/dL (9-16); Calcium 9.5 mg/dL (8.4-10.2); Carbon Dioxide 28 mmol/L (22-29); Chloride 109 mmol/L (96-108); Cholesterol 143 mg/dL (<200); Estimated Glomerular Filt Rate 56; Glucose Fasting 105 mg/dL (60-99); HDL Cholesterol 55 mg/dL (>40); LDL Cholesterol Calculated 75 mg/dL (<100); Potassium 3.8 mmol/L (3.3-5.1); Sodium 143 mmol/L (135-145); Total Protein 6.8 g/dL (6.5-8.0); Triglycerides 69 mg/dL (<150)
[2024-10-25 11:03] LABS: Appearance Urine Clear; Color Urine Yellow; Glucose Urine UA Negative (Negative); Leukocyte Esterase Urine Negative (Negative); Nitrite Urine Negative (Negative); PH 5.5 (5.0-9.0); Specific Gravity - Urine 1.015 (1.005-1.025); UMIC TRIGGER UACC YES; Urine Blood Negative (Negative); Urine Ketones Negative (Negative); Urine Protein 100 (2+) mg/dL (Neg-Trace)
[2024-10-25 11:09] LABS: Bacteria Urine None Seen (None Seen); Hyaline Casts Urine 0-2 /LPF (0-2); RBC Urine 0-2 /HPF (0-2); Squamous Epithelial Cell Urine 0-2 /HPF (0-2); WBC Urine 0-5 /HPF (0-5)
== END 2024-10-25 08:50 | disposition home or self-care (01) ==
LOC: HO.LAB 08:49
PROVIDERS: PCP Internal Medicine; Visit Provider Internal Medicine
DX: D64.9 Anemia, unspecified (principal); E78.00 Pure hypercholesterolemia, unspecified
CPT/HCPCS: 36415; 80053; 80061; 81001; 81003; 85025

== ENCOUNTER 2024-10-26 14:00 | Outpatient (AMB) | payer MEDICARE, SELFPAY ==
[2024-10-26 14:01] VITALS: BP 140/82; PULSE 48; O2SAT 98; BMI 23.8
--- NOTE | 2024-10-26 14:01 | MHC.PC.OV ---
Vital Signs 10/26/24 14:01 Height 5 ft 7 in Weight 152 lb BMI 23.8 BP 140/82 H Blood Pressure Location Lt brachial Position Sitting Pulse 48 L Pulse Source Pulse Oximeter Pulse Oximetry (%) 98 Oxygen Delivery Method Room Air Intake Visit Reasons: 4 Month F/U Bank Manager Required: No Accompanied by: Self / Same As Patient Allergies No Known Allergies Allergy (Verified 10/26/24 14:20) Medication List - Last Reconciled 10/26/24 by Franics Echavarria MD diphenhydramine HCl (Allergy Relief (diphenhydramine)) 25 mg PO TID PRN donepezil 5 mg PO BEDTIME 30 days finasteride 5 mg PO DAILY 90 days folic acid 1 mg PO DAILY metoprolol succinate ER 25 mg PO DAILY omeprazole 20 mg PO DAILY Tobacco use date assessed: 10/26/24 Fall risk assessment: No Falls in past year Last assessed Fall Risk: 10/26/24 Dental Screening Dental Screen Date: 10/26/24 Did you have a dental visit in the last 12 months?: No Did you have a dental problem in the last 6 months where you did not have access to dental care?: No Was dental information given to patient?: No HPI 4 Month F/U HPI Details Patient comes in today for his follow up visit States that he feels okay He denies any headaches or dizziness Denies any chest pains, no SOB No nausea/vomiting, no abdominal pain No change in bowel habits noted He had his follow up labs done yesterday - to discuss his results He would also like to get his flu shot today [facility] 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 Benign prostatic hyperplasia with lower urinary tract 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 GERD without esophagitis Constipation Spondylosis of lumbar region without myelopathy or radiculopathy Peripheral polyneuropathy Pure hypercholesterolemia Coronary artery disease Surgical History History of cardiac catheterization Stented coronary artery Family History Father Medical history unknown Mother Medical history unknown Family/Other Thalassemia Social History Housing: House Alcohol intake: never Patient Tobacco Use Status: Former Tobacco user e-Cigarette/Vaping Use: Never Used Second Hand Smoke Exposure: Yes service: No Current occupational status: retired Cognitive needs: No Hearing needs: No Vision needs: Yes Questionnaire PHQ-9 Over the last 2 weeks, how often have you been bothered by any of the following problems? 1. Little interest or pleasure in doing things: not at all 2. Feeling down, depressed, or hopeless: not at all 3. Trouble falling or staying asleep, or sleeping too much: not at all 4. Feeling tired or having little energy: not at all 5. Poor appetite or overeating: not at all 6. Feeling bad about yourself - or that you are a failure or have let yourself or your family down: not at all 7. Trouble concentrating on things, such as reading the newspaper or watching television: not at all 8. Moving or speaking so slowly that other people could have noticed. Or the opposite - being so fidgety or restless that you have been moving around a lot more than usual: not at all 9. Thoughts that you would be better off or of hurting yourself in some way: not at all Total score: 0 Depression Screening Interpretation: Negative Depression Screening Done: Yes 41821 - PHQ-9 Billing: Yes Source: Developed by Drs. Marlon Mota, Tequila Swain, Yuriy Mosquera and colleagues, with an educational rose from [employer]. Thrive Questionnaire Date Thrive assessed: 10/26/24 I am a: Patient What is your living situation today?: I have a steady place to live Within the past 12 months, did the food you bought not last and you didn't have the money to get more?: Never true Within the past 12 months, did you worry whether your food would run out before you got money to buy more?: Never true Do you have trouble paying for medicines?: No Do you have trouble getting transportation to medical appointments?: No Do you have trouble paying your heating and electricity bill?: No Do you have trouble taking care of your child, family member or friend?: No Do you have trouble with day-to-day activities such as bathing, preparing meals, shopping, managing finances, etc.?: No Are you currently unemployed and looking for a job?: No Are you interested in more education?: No Please select the resources that you would like help with: None Currently or been in a relationship where the following occur: No concerns reported THRIVE Score: 0 AUDIT C Alcohol Use Questionnaire (AUDIT-C) 1. How often do you have a drink containing alcohol?: Never 3. How often do you have six or more drinks on one occasion?: Never Total Score: 0 Score Reviewed/Action Taken: Yes JOSETTE-7 AMB Questionnaire JOSETTE-7 Date JOSETTE - 7 assessed: 10/26/24 Feeling nervous, anxious, or on edge: 0 = Not at all Not being able to stop or control worryin = Not at all Worrying too much about different things: 0 = Not at all Trouble relaxin = Not at all Being so restless that it is hard to sit still: 0 = Not at all Becoming easily annoyed or irritable: 0 = Not at all Feeling afraid as if something awful might happen: 0 = Not at all Total JOSETTE-7 score (0-4 normal; 5-9 mild; 10-14 moderate; 15-21 severe): 0 Source: Developed by Drs. Marlon Mota, Tequila Swain, Yuriy Mosquera and colleagues, with an educational rose from [employer]. Review of Systems Const Denies chills, Denies fatigue, Denies fever(s) and Denies headache(s) ENT Details: Is hard of hearing - states that he has something to wear to help with his hearing but he does not like having them on Denies dysphagia, Denies dizziness, Denies otalgia, Denies headache(s), Denies neck pain, Denies odynophagia and Denies sore throat Card Denies chest pain, Denies palpitations and Denies dyspnea Resp Denies cough and Denies dyspnea GI Denies abdominal pain, Denies hematochezia, Denies constipation, Denies dysphagia, Denies heartburn, Denies diarrhea, Denies nausea, Denies odynophagia and Denies vomiting Denies dysuria, Denies nocturia and Denies urinary frequency Musc Reports back pain (over the lower back, off and on) and Denies neck pain Skin/Breast Denies rash Neuro Denies dizziness and Denies headache(s) Endo Denies fatigue and Denies palpitations Physical exam (Primary Care) Vital Signs: Last Vital Signs Pulse 48 L 10/26/24 14:01 BP 140/82 H 10/26/24 14:01 Pulse Ox 98 10/26/24 14:01 Oxygen Delivery Method Room Air 10/26/24 14:01 BMI result Body Mass Index 23.8 Tobacco/Smoking Status: Tobacco use Status Tobacco use date assessed 10/26/24 10/26/24 14:04 Patient Tobacco Use Status Former Tobacco user 10/26/24 14:04 e-Cigarette/Vaping Use Never Used 10/26/24 14:04 PHQ-9: PHQ-9 Score PHQ-9: Total score 0 10/26/24 14:55 Depression Screening Interpretation: Negative Thrive Assessment: Date of Thrive Assessment Date Thrive assessed 10/26/24 10/26/24 14:04 Currently or been in a relationship where the following occur: No concerns reported Const General: no acute distress and alert HENMT Ears: TM's normal bilaterally and EAC's normal Throat: Yes posterior oropharynx normal and Yes tonsils normal (no TP congestion) Neck Neck: Yes no lymphadenopathy and Yes supple Thyroid: Thyroid normal Resp Auscultation: clear to auscultation bilaterally, no rales and no wheezes Cardio Rate: regular rate Rhythm: regular rhythm Heart sounds: no murmurs GI Palpation (GI): Soft to palpation and nontender Auscultation: normal bowel sounds General: Yes no CVA tenderness Back/Spine/Pelvis Back: no CVA tenderness Thoracic/Lumbar Spine: lumbar spinal tenderness Skin Rashes: no rashes Extrem General: Yes no clubbing, cyanosis or edema Office Procedures Flu Questionnaire Does the patient have a severe egg allergy?: No Does the patient have severe life threatening allergies?: No Does the patient have a fever or illness today?: No Has the patient ever had Guillain-Daven[place] Syndrome?: No Has the patient ever had any past reaction to a flu shot?: No Immunizations Fluarix Triv [id number] (PF) 45 mcg (15 mcg x 3)/0.5 mL IM syringe Performing Provider: Francis Echavarria MD Performing Location: [facility] [place] [facility] Administered by: ULISSES Colvin on 10/26/24 14:55 Dose Route Admin Location Dispensed Lot Number Expiration Date [facility] [employer] Laboratory Manager 0.5 mL IM Left Deltoid 0.5 mL [id number] 05/22/25 36421-337-50 [employer] VIS Given Date VIS Provided VIS Publication Date 10/26/24 Single Vaccine 21 Eligibility Eligibility Date Funding Source Not [facility] Eligible 10/26/24 Private Results Reviewed Results Reviewed: Laboratory Tests 10/25/24 10/25/24 09:19 09:20 WBC 4.4 L Hgb 11.4 L Hct 37.4 L Plt Count 125 L Sodium 143 Potassium 3.8 Creatinine 1.21 Estimated GFR 56 Fasting Glucose 105 H Calcium 9.5 AST 26 ALT 14 Triglycerides 69 Cholesterol 143 LDL Cholesterol, Calc 75 HDL Cholesterol 55 Ur Specific [place] 1.015 Urine Protein 100 (2+) H Urine Glucose (UA) Negative Urine Blood Negative Urine Nitrite Negative Ur Leukocyte Esterase Negative Coding Level of Care Code Est Pt Level 4 (80458) Complex EM visit Add On G2211 Diagnoses Coronary artery disease involving [place] coronary artery of [place] heart without angina pectoris I25.10 Associated angina: without angina Coronary Disease-Associated Artery/Lesion type: [place] artery [place] vs. 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 M88.862 Vitamin D deficiency E55.9 Memory impairment R41.3 Benign prostatic hyperplasia with lower urinary tract symptoms, symptom details unspecified N40.1 Lower urinary tract symptom detail: unspecified Insomnia, unspecified type G47.00 Insomnia type: unspecified Additional Codes PHQ-9 - 90094 - PHQ-9 Billing: Yes ([id number]) Assessment & Plan Assessment & Plan (1) Coronary artery disease: Comment: S/P elective cardiac catheterization in January 2018 with PCI of the mid and proximal LAD at the site of prior stent Repeat nuclear stress testing was negative but Cardiology recommended continuing Clopidogrel for at least a few years due to his history of overlapping stenting Code(s): I25.10 - Atherosclerotic heart disease of [place] coronary artery without angina pectoris Category: Medical Qualifiers: Associated angina: without angina Coronary Disease-Associated Artery/Lesion type: [place] artery [place] vs. transplanted heart: [place] heart Qualified Code(s): I25.10 - Atherosclerotic heart disease of [place] coronary artery without angina pectoris Plan: Patient currently remains asymptomatic from a cardiac standpoint Continue Metoprolol ER 25 mg QD and Aspirin 81 mg QD; Clopidogrel was discontinued 1 year after his PCI Follow-up with cardiology as scheduled (2) Pure hypercholesterolemia: Code(s): E78.00 - Pure hypercholesterolemia, unspecified Category: Medical Plan: Results of his labs done yesterday reviewed and discussed with patient Reinforced low cholesterol diet Continue Atorvastatin 80 mg QD Will recheck his labs and fasting lipids in 4 months for follow-up (3) 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: Code(s): D56.3 - Thalassemia minor Category: Medical Plan: Patient has presented with chronic microcytic anemia - MCV is consistently < 80 and his iron function studies have all been normal when checked in the past Hgb electrophoresis done in February 2022 confirmed (+) beta thalassemia trait No intervention is needed for this condition aside from routine monitoring of his CBC for any untoward or unexpected changes (4) Microcytic hypochromic anemia: Code(s): D50.9 - Iron deficiency anemia, unspecified Category: Medical Plan: Patient had a colonoscopy done at [facility] in November 2021 that reportedly came back normal except for a tubular adenoma His anemia is most likely due to thalassemia trait, as iron function studies were normal when checked a few times in the past Hgb electrophoresis done in February 2022 confirmed (+) beta thalassemia trait (5) Peripheral polyneuropathy: Code(s): G62.9 - Polyneuropathy, unspecified Category: Medical Plan: Patient was on Amitriptyline 25 mg Q HS in the past but he stopped taking this a while back as he felt that it was not really helping much He is currently okay with not taking anything for this, as he states that his symptoms are mostly tolerable (6) Spondylosis of lumbar region without myelopathy or radiculopathy: Code(s): M47.816 - Spondylosis without myelopathy or radiculopathy, lumbar region Category: Medical Plan: Reinforced activity and weight-lifting restrictions Follow up with Neurosurgery (Dr. Guerra) as scheduled -? he has been reportedly advised by Dr. Guerra in the past that surgery will not help him and that his on and off right lower back pain is most likely radicular pain from his lumbar spine but he may need surgery again on his lower back at some point if his symptoms progress although his age may make surgery riskier as he gets older Have advised patient that if he wishes or if his symptoms continue to progress or get worse, we can refer him to Pain Management to help him explore treatment options to help him control his pain better - states that he will call for referral if he feels his symptoms are getting unbearable (7) Constipation: Code(s): K59.00 - Constipation, unspecified Category: Medical Qualifiers: Constipation type: unspecified constipation type Qualified Code(s): K59.00 - Constipation, unspecified Plan: Have encouraged patient again on increased oral fluids and dietary fiber Continue OTC stool softeners as needed (8) GERD without esophagitis: Code(s): K21.9 - Gastro-esophageal reflux disease without esophagitis Category: Medical Plan: Dietary restrictions reinforced Continue Omeprazole 20 mg QD (9) 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: Code(s): 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 Category: Medical Plan: As patient has no significant symptoms associated with this, will just continue with supportive Tx for now Will continue to monitor patient regularly (10) Vitamin D deficiency: Code(s): E55.9 - Vitamin D deficiency, unspecified Category: Medical Plan: Continue Vitamin D3 1000 units QD (11) Memory impairment: Code(s): R41.3 - Other amnesia Category: Medical Plan: Patient's has asked for him to be prescribed something to help with his memory in the recent past as she feels that patient is starting to forget a lot of things frequently Patient denies this and states that he does not need to take any Rx for his memory We tried starting him on Donepezil 5 mg Q HS but it does not look like patient ever started taking this Rx (12) Benign prostatic hyperplasia with lower urinary tract symptoms: Code(s): N40.1 - Benign prostatic hyperplasia with lower urinary tract symptoms Category: Medical Qualifiers: Lower urinary tract symptom detail: unspecified Qualified Code(s): N40.1 - Benign prostatic hyperplasia with lower urinary tract symptoms Plan: Continue Finasteride 5 mg QD Follow up with urology as scheduled (13) Insomnia: Code(s): G47.00 - Insomnia, unspecified Category: Medical Qualifiers: Insomnia type: unspecified Qualified Code(s): G47.00 - Insomnia, unspecified Plan: Sleep hygiene reinforced Plan As requested, flu vaccine given to the patient today Follow up in 4 months Orders: Orders Complete Blood Count Auto Diff 4 Months D64.9 - Anemia, unspecified Comprehensive [place]. Panel Fast 4 Months E78.00 - Pure hypercholesterolemia, unspecified Influenza [id number] Immunization 10/26/24 Z23 - Encounter for immunization TSH reflex Free T4 4 Months E78.00 - Pure hypercholesterolemia, unspecified UA CC w/rflx Micro + Cult 4 Months R30.0 - Dysuria Vitamin D 25-OH Total 4 Months E55.9 - Vitamin D deficiency, unspecified Vitamin B12 and Folate 4 Months E53.8 - Deficiency of other specified B group vitamins Lipid Panel 4 Months E78.00 - Pure hypercholesterolemia, unspecified
== END 2024-10-26 14:44 | disposition home or self-care (01) ==
PROVIDERS: PCP Internal Medicine; Visit Provider Internal Medicine
DX: I25.10 Atherosclerotic heart disease of native coronary artery without angina pectoris (principal); E78.00 Pure hypercholesterolemia, unspecified; D56.3 Thalassemia minor; D50.9 Iron deficiency anemia, unspecified; G62.9 Polyneuropathy, unspecified; M47.816 Spondylosis without myelopathy or radiculopathy, lumbar region; K59.00 Constipation, unspecified; K21.9 Gastro-esophageal reflux disease without esophagitis; M88.862 Osteitis deformans of left lower leg; E55.9 Vitamin D deficiency, unspecified; R41.3 Other amnesia; N40.1 Benign prostatic hyperplasia with lower urinary tract symptoms; G47.00 Insomnia, unspecified

== ENCOUNTER → 2024-10-26 14:00 | Outpatient (BNVA) | payer MEDICARE, SELFPAY | PROVIDERS: PCP Internal Medicine; Visit Provider Internal Medicine | DX: Z23 Encounter for immunization (principal); I25.10 Atherosclerotic heart disease of native coronary artery without angina pectoris; E78.00 Pure hypercholesterolemia, unspecified; D56.3 Thalassemia minor; D50.9 Iron deficiency anemia, unspecified; G62.9 Polyneuropathy, unspecified; M47.816 Spondylosis without myelopathy or radiculopathy, lumbar region; K21.9 Gastro-esophageal reflux disease without esophagitis; R41.3 Other amnesia; E55.9 Vitamin D deficiency, unspecified; N40.1 Benign prostatic hyperplasia with lower urinary tract symptoms; G47.00 Insomnia, unspecified | CPT/HCPCS: 90471; 90656; 96127; 99212 ==

== ENCOUNTER 2024-11-10 18:31 | Emergency (ER) | payer MEDICARE, SELFPAY ==
--- NOTE | ~2024-11-10 | CT_ITS ---
EXAMINATION: CT ABDOMEN AND PELVIS WITHOUT CONTRAST CLINICAL INFORMATION: Urinary retention COMPARISON: CT abdomen and pelvis December 2016 TECHNIQUE: Multidetector volumetric imaging was performed from the superior aspect of the liver through the pubic symphysis. Sagittal and coronal reformatted images were obtained on the technologist's workstation. This CT examination was performed using dose optimization techniques as appropriate, variously including the following: *Automated exposure control *Adjustment of mA and/or kV according to patient size (this includes techniques or standardized protocols for targeted exams where dose is matched to indication/reason for exam; i.e. extremities or head) *Use of iterative reconstruction technique DLP: 452 mGy-cm FINDINGS: LUNG BASES: The visualized lung bases are unremarkable. LIVER, GALLBLADDER, AND BILIARY TREE: The liver is normal in size, shape, and attenuation. No focal hepatic lesion or biliary ductal dilatation is present. A calcified gallstone within the gallbladder measuring 1 cm increase in size compared to prior. No gallbladder wall thickening or pericholecystic fluid. PANCREAS: Unremarkable. SPLEEN: Unremarkable. ADRENAL GLANDS: Hypodense nodules in both adrenals unchanged compatible with adenomas KIDNEYS AND URETERS: Multiple cysts present in both kidneys unchanged. No follow-up required. 2 mm nonobstructing stone in the left mid to lower portion of the left kidney new compared to prior. No hydronephrosis or hydroureter. BLADDER: Bladder not significantly distended GASTROINTESTINAL TRACT: Appendix normal. Large bowel diverticulosis in the distal descending colon and sigmoid. No definite diverticulitis small bowel normal ABDOMINAL WALL: No significant hernia is appreciated. LYMPH NODES: Normal. VASCULAR: Moderate arterial calcification throughout PELVIC VISCERA: Prostate enlarged measuring 7 cm transverse and partially calcified. This indents on the bladder. OSSEOUS STRUCTURES: Multilevel spondylosis of lumbar sacral spine slightly progressed compared to prior particularly at the L4-L5 level with vacuum disc phenomena. Hemangioma with slight compression of L2 unchanged. CT/CT abdomen pelvis wo IV con IMPRESSION: 1. No acute abnormality. 2. Cholelithiasis. 3. Stable bilateral adrenal adenomas. 4. Stable bilateral renal cysts. 5. Small nonobstructing stone left kidney. 6. Diverticulosis without diverticulitis. 7. Prostatic enlargement. 8. Multilevel spondylosis of the lumbar sacral spine slightly progressed compared to prior. Fleischner guidelines were followed. Electronically signed by: Glen Dwyer MD 11/10/2024 08:20 PM NEIL YANES
[2024-11-10 18:39] VITALS: BP 181/65; PULSE 57; RESP 20; TEMP 36.6; O2SAT 99; BMI 24.2
--- NOTE | 2024-11-10 18:39 | ED_ITS ---
HPI - Abdominal Pain General Chief Complaint: Urogenital-Male Stated Complaint: Groin pain, no voiding in 2 days Time Seen by Provider: 11/10/24 18:48 Source: patient, RN notes reviewed and old records reviewed Mode of arrival: ambulatory History of Present Illness ED Provider: Emily Aguilar PA-C HPI narrative: 89-year-old Scottish speaking male with a past medical history of chronic constipation, BPH, CAD s/p PCI, GERD, HLD, presenting to the ED complaining of lower abdominal pain, constipation x 2 days without BM or passing flatus, and urinary retention x today. States has not voided all day. Denies fever, chills, nausea, vomiting, diarrhea MD elicited complaint: abdominal pain Related Data Previous Rx's ?Medication ?Instructions ?Recorded finasteride 5 mg tablet 5 mg PO DAILY 90 days #90 tabs 05/20/22 metoprolol succinate 25 mg 25 mg PO DAILY #90 tabs 12/11/22 tablet,extended release 24 hr donepezil 5 mg tablet 5 mg PO BEDTIME 30 days #30 tabs 02/17/24 diphenhydramine HCl 25 mg tablet 25 mg PO TID PRN itching/rash #30 06/22/24 (Allergy Relief (diphenhydramine)) tabs omeprazole 20 mg capsule,delayed 20 mg PO DAILY #90 caps 07/01/24 release folic acid 1 mg tablet 1 mg PO DAILY #90 tabs 09/10/24 Allergies Allergy/AdvReac Type Severity Reaction Status Date / Time No Known Allergies Allergy Verified 11/10/24 18:41 Review of Systems Review of Systems Yes all other systems are reviewed and are negative Constitutional: Reports as per HPI [facility] Past Medical History Attestation statement: The following information was validated with the patient. 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 Benign prostatic hyperplasia with lower urinary tract 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 GERD without esophagitis Constipation Spondylosis of lumbar region without myelopathy or radiculopathy Peripheral polyneuropathy Pure hypercholesterolemia Coronary artery disease Surgical History History of cardiac catheterization Stented coronary artery Family History Family History Father Medical history unknown Mother Medical history unknown Family/Other Thalassemia Social History Social History Housing: House Alcohol intake: never Patient Tobacco Use Status: Former Tobacco user e-Cigarette/Vaping Use: Never Used Second Hand Smoke Exposure: Yes Advance Directives: No Advance Directives Information Provided: No Do you have a plan to hurt others: No Plan service: No Current occupational status: retired Cognitive needs: No Hearing needs: No Vision needs: Yes Physical Exam ED Vital Signs: Vital Signs - 24 hr 11/10/24 18:39 11/10/24 20:08 Temperature 97.9 F 98.1 F Pulse Rate 57 56 Respiratory Rate 20 18 Blood Pressure 181/65 H 154/62 H Pulse Oximetry 99 98 Oxygen Delivery Method Room Air Room Air BMI result Body Mass Index 24.2 Const General: cooperative, healthy appearing and no acute distress Orientation/consciousness: patient oriented x3 Limitations: no limitations HENMT Head: Yes normal to inspection and Yes atraumatic Ears: hearing grossly normal bilaterally General nose exam: Normal external nose present Face and sinus: Yes normal facial exam Eyes General: appearance normal, both eyes and all related structures EOM: EOMs intact bilaterally Neck Neck: Yes normal visual inspection and Yes no meningeal signs Resp Effort & Inspection: normal respiratory effort and no respiratory distress Auscultation: clear to auscultation bilaterally Cardio Rate: regular rate Heart sounds: S1 normal heart sound present and S2 normal heart sound present GI Inspection: Yes normal to inspection Palpation (GI): Soft to palpation, nontender, no guarding and not rigid Rectal Exam - Male: Yes External hemorrhoid(s) present and No fecal impaction Skin Rashes: no rashes Wounds: no wounds Neuro General: patient oriented x3, tone normal and no meningeal signs Cranial nerves: Yes CN's II-XII intact bilaterally Gait exam (Neuro): Normal gait present Extrem General: Yes normal to inspection Course Course Course Narrative: This is a Rapid Medical Examination (RME) performed by Zacarias Kaur PA-C in triage. Full HPI, ROS, assessment and treatment plan per primary provider in the Main ED. 89 yo Scottish speaking male with history of chronic constipation, BPH, CAD s/p PCI who presents to the ER for evaluation of lower abdominal pain after being able to void at all today. He also has not had a BM in 2 days. unknown if he is taking his usual laxatives. last time he urinated was last night and he reports having no issues. no N/V, back pain. Plan: bladder scan, UA, labs -2034--patient with sensation to urinate however still unable to void. Repeat bladder scan with 545 mL > will place Osborne catheter due to urinary retention -labs reassuring CT abdomen pelvis wo IV con IMPRESSION: 1. No acute abnormality. 2. Cholelithiasis. 3. Stable bilateral adrenal adenomas. 4. Stable bilateral renal cysts. 5. Small nonobstructing stone left kidney. 6. Diverticulosis without diverticulitis. 7. Prostatic enlargement. 8. Multilevel spondylosis of the lumbar sacral spine slightly progressed compared to prior. Fleischner guidelines were followed. -2099--ED care transferred to [facility] pending UA and anticipated dispo Medical Decision Making Medical Decision Making MDM Narrative: 89-year-old Scottish speaking male with a past medical history of chronic constipation, BPH, CAD s/p PCI, GERD, HLD, presenting to the ED complaining of lower abdominal pain, constipation x 2 days without BM or passing flatus, and urinary retention x today. On exam vital signs stable, NAD, nontoxic appearing, abdomen is soft and nontender, no appreciable fecal impaction on rectal exam. Minimal reachable stool in vault. Bladder scan showing 327ml. Concern for constipation vs higher up impaction vs urinary retention vs mass. Rule out MIKAYLA and infectious etiology Plan: Labs, UA, CT AP Please refer to course for remaining clinical decision making, interpretation of labs/imaging results, and discussions with consultants and/or family members. Differential Diagnosis Differential Diagnoses: The differential diagnosis associated with the presentation includes As above Admission/Observation Consideration of admission/observation: Escalation of care including admission/observation considered Lab Data [facility] Lab Attestation statement: I reviewed the patient's lab results. 11/10/24 19:57 11/10/24 19:57 Labs: Lab Results 11/10/24 Range/Units 19:57 WBC 8.7 (4.8-10.8) X10*3/uL RBC 5.51 (4.60-5.80) X10*6/uL Hgb 11.3 L (14.0-18.0) g/dl Hct 36.0 L (42.0-52.0) % MCV 65.3 L (80.0-98.0) fL MCH 20.5 L (27.0-33.0) pg MCHC 31.4 (31.0-36.0) g/dl RDW 15.4 (11.0-16.0) % Plt Count 131 L (160-400) X10*3/uL MPV 10.7 (9.4-12.4) fL Immature Gran % (Auto) 0.5 H (0.0-0.4) % Neut % (Auto) 89.4 H (45-73) % Lymph % (Auto) 4.7 L (20-40) % [place] % (Auto) 4.9 (2-11) % Eos % (Auto) 0.2 (0-4) % Baso % (Auto) 0.3 (0-2) % Lymph # (Auto) 0.4 L (1.2-4.9) X10*3/uL [place] # (Auto) 0.4 (0.1-1.2) X10*3/uL Eos # (Auto) 0.0 (0.0-0.4) X10*3/uL Baso # (Auto) 0.0 (0.0-0.2) X10*3/uL Abs Immat Gran (auto) 0.04 H (0.00-0.03) X10*3/uL Absolute Neuts (auto) 7.8 (2.0-8.3) x10*3/uL Absolute Nucleated RBC 0.000 (0.0-0.012) X10*3/uL Nucleated RBC % (auto) 0.0 (0.0-0.2) /100WBC Sodium 140 (135-145) mmol/L Potassium 3.9 (3.3-5.1) mmol/L Chloride 107 (96-108) mmol/L Carbon Dioxide 26 (22-29) mmol/L Anion Gap 11 L (12-20) BUN 12 (9-16) mg/dL Creatinine 1.09 (0.5-1.4) mg/dL Estim Creat Clear Calc 41.4 Estimated GFR > 60 Random Glucose 119 H (60-115) mg/dL Calcium 8.8 D (8.4-10.2) mg/dL Magnesium 1.6 (1.6-2.6) mg/dL Total Bilirubin 0.9 (0.0-1.0) mg/dL Direct Bilirubin 0.4 (0.0-0.5) mg/dL AST 26 (5-37) U/L ALT 18 (0-40) U/L Alkaline Phosphatase 119 H (39-117) U/L Total Protein 6.8 (6.5-8.0) g/dL Albumin 4.1 (3.5-5.0) g/dL Independent Interpretation I performed an independent interpretation of an: CT Scan Radiology Impression Discussion of test interpretation with radiology: I have reviewed the radiologist's reading. Independent Historian Clinical information obtained from an independent historian. History obtained from or confirmed by: Other (son) External Record Review External record reviewed: Inpatient record, Office record, Outpatient record, Prior outpatient labs, Prior outpatient radiology, Primary care record and Outside ED record Tests considered The following testing was considered but not selected: As above Prescription Management I considered prescription management with: Pain Medication Chronic Conditions Patient?s care impacted by: Other (CAD, BPH) Social Determinants Patient?s care significantly limited by Social Determinants of Health including: Other Social Determinant of Health Medications Administered Discontinued Medications Generic Name Dose Route Start Last Admin Trade Name Freq PRN Reason Stop Dose Admin Lidocaine HCl 10 ml 11/10/24 20:44 11/10/24 20:48 Lidocaine Hcl 2 % Urojet 10 Ml Jel.Pf.Yashira TOPICAL 11/10/24 20:45 10 ml ONCE ONE Administration Discharge Plan Discharge Clinical Impression: Acute urinary retention Patient Disposition: Still a Patient Instructions: Urinary Retention in Men (ED), Osborne Catheter Placement and Care (ED) Additional Instructions: Your CT scan shows an enlarged prostate which is likely causing your urinary retention You need to follow-up with urology outpatient, call tomorrow to make an appointment If you develop pain, bloody urine, urine is not draining into bag, fever return to the ED Prescriptions: No Action finasteride 5 mg tablet 5 mg PO DAILY 90 Days Qty: 90 3RF metoprolol succinate 25 mg tablet extended release 24 hr 25 mg PO DAILY Qty: 90 2RF omeprazole 20 mg capsule,delayed release(/EC) 20 mg PO DAILY Qty: 90 11RF folic acid 1 mg tablet 1 mg PO DAILY Qty: 90 8RF donepezil 5 mg tablet 5 mg PO BEDTIME 30 Days Qty: 30 3RF diphenhydramine HCl [Allergy Relief(diphenhydramin)] 25 mg tablet 25 mg PO TID PRN (Reason: itching/rash) Qty: 30 5RF Referrals: [facility] [Provider Group] - 1 week Print Language: Yakut
[2024-11-10 20:08] VITALS: BP 154/62; PULSE 56; RESP 18; TEMP 36.7; O2SAT 98
[2024-11-10 20:19] LABS: Alanine Aminotransferase 18 U/L (0-40); Albumin Level 4.1 g/dL (3.5-5.0); Alkaline Phosphatase 119 U/L (39-117); Anion Gap 11 (12-20); Aspartate Amino Transferase 26 U/L (5-37); Bilirubin Direct 0.4 mg/dL (0.0-0.5); Bilirubin Total 0.9 mg/dL (0.0-1.0); Blood Urea Nitrogen 12 mg/dL (9-16); Calcium 8.8 mg/dL (8.4-10.2); Carbon Dioxide 26 mmol/L (22-29); Chloride 107 mmol/L (96-108); Creatinine Clr Calc Pharmacy 41.4; Estimated Glomerular Filt Rate > 60; Glucose Random 119 mg/dL (60-115); Magnesium 1.6 mg/dL (1.6-2.6); Potassium 3.9 mmol/L (3.3-5.1); Sodium 140 mmol/L (135-145); Total Protein 6.8 g/dL (6.5-8.0)
[2024-11-10 20:22] LABS: Basophils Percent Auto 0.3 % (0-2); Red Cell Distribution Width 15.4 % (11.0-16.0); SCAN SMEAR FLAG 1
[2024-11-10 20:24] LABS: Eosinophils Percent Auto 0.2 % (0-4); Hemoglobin 11.3 g/dl (14.0-18.0); Imm Gran Abs Auto 0.04 X10*3/uL (0.00-0.03); Imm Gran Pct Auto 0.5 % (0.0-0.4); Lymphocytes Absolute Auto 0.4 X10*3/uL (1.2-4.9); Lymphocytes Percent Auto 4.7 % (20-40); MANUAL DIFF FLAG SCAN; Mean Corpuscular HGB Conc 31.4 g/dl (31.0-36.0); Mean Corpuscular Hemoglobin 20.5 pg (27.0-33.0); Mean Corpuscular Volume 65.3 fL (80.0-98.0); Mean Platelet Volume 10.7 fL (9.4-12.4); Monocytes Absolute Auto 0.4 X10*3/uL (0.1-1.2); Monocytes Percent Auto 4.9 % (2-11); Neutrophils Absolute Auto 7.8 x10*3/uL (2.0-8.3); Neutrophils Percent Auto 89.4 % (45-73); Platelet Count 131 X10*3/uL (160-400); Red Blood Count 5.51 X10*6/uL (4.60-5.80); White Blood Count 8.7 X10*3/uL (4.8-10.8)
[2024-11-10 20:30] LABS: PLT ABN DIST 1
[2024-11-10] MEDS: Lidocaine HCl 2 % Urojet 10 ML JEL.PF.APP TOPICAL (20:48)
--- NOTE | 2024-11-10 20:59 | PC.NURSE ---
Took over care at 19:00 from REUBEN Weller, pt bladder scanned, per provider Gustafson placed successful with no difficulty, Education to pt and family member regarding gustafson care and drainage.
[2024-11-10 21:04] LABS: SLIDE REVIEW VERIFIED
[2024-11-10 21:11] LABS: Appearance Urine Cloudy; Color Urine Yellow; Glucose Urine UA Negative (Negative); Leukocyte Esterase Urine Negative (Negative); Nitrite Urine Negative (Negative); PH 5.5 (5.0-9.0); Specific Gravity - Urine 1.015 (1.005-1.025); UMIC TRIGGER UACC YES; Urine Blood Negative (Negative); Urine Ketones Negative (Negative); Urine Protein 300 (3+) mg/dL (Neg-Trace)
[2024-11-10 21:17] LABS: Bacteria Urine None Seen (None Seen); Hyaline Casts Urine 0-2 /LPF (0-2); RBC Urine 0-2 /HPF (0-2); Squamous Epithelial Cell Urine 0-2 /HPF (0-2); WBC Urine 0-5 /HPF (0-5)
[2024-11-10 21:47] VITALS: BP 184/79; PULSE 57; RESP 16; TEMP 36.6; O2SAT 97
--- NOTE | 2024-11-10 22:09 | PC.NURSE ---
provider Kendrick Anthony aware of blood pressure, ok to discharge.
[2024-11-10 22:10] VITALS: BP 187/79; PULSE 97; RESP 16; TEMP 36.4; O2SAT 97
== END 2024-11-10 22:11 | disposition home or self-care (01) ==
PROVIDERS: Physician Assistant; Emergency Provider Emergency Medicine; PCP Internal Medicine
DX: R33.8 Other retention of urine (principal); R10.30 Lower abdominal pain, unspecified; E78.00 Pure hypercholesterolemia, unspecified; Z87.891 Personal history of nicotine dependence; Z79.899 Other long term (current) drug therapy
CPT/HCPCS: 36415; 51702; 51798; 74176; 80048; 80076; 81001; 83735; 85025; 99284; 99285

== ENCOUNTER 2024-11-29 10:43 | Outpatient (AMB) | payer MEDICARE, SELFPAY ==
--- NOTE | 2024-11-29 10:44 | A.OFFVIS_ITS ---
Intake Visit Reasons: [facility] [place] ER Follow Up-Voiding Trial Intake Note: Patient is present for [facility] F/U VOIDING TRIAL Urology Medication:NONE Antibiotic Allergy:NONE Blood Thinner:NONE Corrugator Required: No Allergies No Known Allergies Allergy (Verified 01/13/25 07:59) HPI Comments Details: Tiago is a pleasant male. He is a patient of Dr. Echavarria. He seen for the following urologic conditions - elevated PSA - lower urinary tract symptoms Recent episode of retention - triggered by constipation Had come off finasteride last year Voiding trial in office today Successful Restart finasteride Three-month follow-up PVR Lower urinary tract symptoms Longstanding Has some nocturia Prior gross hematuria which was evaluated in 2011 Prior history renal cyst 2019 Current medications include finasteride PSA 03/14 2.0, 03/15 2.7 PFSH 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 Benign prostatic hyperplasia with lower urinary tract 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 GERD without esophagitis Constipation Spondylosis of lumbar region without myelopathy or radiculopathy Peripheral polyneuropathy Pure hypercholesterolemia Coronary artery disease Surgical History History of cardiac catheterization Stented coronary artery Family History Father Medical history unknown Mother Medical history unknown Family/Other Thalassemia Social History Housing: House Alcohol intake: never Patient Tobacco Use Status: Former Tobacco user e-Cigarette/Vaping Use: Never Used Second Hand Smoke Exposure: Yes Advance Directives: No Advance Directives Information Provided: Yes Do you have a plan to hurt others: No Plan service: No Current occupational status: retired Cognitive needs: No Hearing needs: No Vision needs: Yes Review of Systems Const Denies chills and Denies fever(s) Card Reports no additional complaints and Denies syncope Resp Denies cough GI Denies abdominal pain and Denies heartburn Reports as per HPI and Denies change in libido Neuro Denies syncope Psych Denies change in libido Endo Denies change in libido Physical Exam Const General: cooperative, healthy appearing, comfortable and no acute distress Orientation/consciousness: patient oriented x3 HEENT Face and sinus: Yes normal facial exam Mouth: moist mucous membranes Neck Neck: Yes normal visual inspection, Yes full ROM and Yes trachea midline Chest Chest palpation & inspection: normal inspection of the chest Resp Effort & Inspection: normal respiratory effort, able to speak in complete sentences and no respiratory distress GI Inspection: Yes normal to inspection Back/Spine/Pelvis Cervical Spine: normal cervical lordosis Thoracic/Lumbar Spine: thoracic and lumbar spine normal to inspection Skin General skin exam: no rashes or lesions noted Neuro General: patient oriented x3, gait normal, tone normal and moves all extremities Extrem General: Yes normal to inspection and Yes capillary refill normal Office Procedures Bladder/Catheter Procedure Details: Patient presents to office for voiding trial s/p hospitalization. 120mls normal saline instilled through catheter, patient tolerated instillation well. Removed 16fr gustafson catheter, patient tolerated removal well. Patient able to void approximately 180mls. MA to bladder scan 47719-Tdelwleffd of Bladder Procedure code (CPT) selection complete Post Void Residual Post Residual Void Post Void Residual (PVR): 11 70645-Cpkj Void Residual by ultrasound Assessment & Plan Assessment & Plan (1) Benign prostatic hyperplasia with lower urinary tract symptoms: Code(s): N40.1 - Benign prostatic hyperplasia with lower urinary tract symptoms Category: Medical Qualifiers: Lower urinary tract symptom detail: unspecified Qualified Code(s): N40.1 - Benign prostatic hyperplasia with lower urinary tract symptoms (2) Nocturia more than twice per night: Code(s): R35.1 - Nocturia Category: Medical (3) Urinary retention with incomplete bladder emptying: Code(s): R33.9 - Retention of urine, unspecified Category: Medical Plan Three-month follow-up check PVR Orders: Orders AMB Bladder/Catheter Procedure 11/29/24 R35.1 - Nocturia, N40.1 - Benign prostatic hyperplasia with lower urinary tract symptoms AMB Post Void Residual by ultrasound 11/29/24 R35.1 - Nocturia, N40.1 - Benign prostatic hyperplasia with lower urinary tract symptoms Medications: Refilled finasteride 5 mg PO DAILY 90 tabs 3RF 90 days Patient Instructions: This note is constructed using voice recognition software. While every effort has been made to ensure accuracy airplane gas tank liner assembler errors may have been included. Imaging studies, laboratory and physical exam results were discussed and reviewed in detail. No major barriers to patient understanding were identified. An opportunity to ask questions regarding the treatment plan was provided. All questions were answered. The patient expressed understanding and agreement with the above treatment plan. The patient is aware they should contact our office by phone for worsening of their current condition or the appearance of new urologic symptoms. Compliance is encouraged with any medications and followup testing that is ordered. It is a privilege to participate in the urologic care of your patient. If you have any questions or concerns regarding treatment for the above conditions, or other urologic issues, please do not hesitate to contact me. The office telephone contact is [phone]. Sincerely, Dr Mario Argueta MD, [facility] - Urology Compassionate Specialist Care for the Genitourinary System Coding Level of Care Code Est Pt Level 4 (93667) Diagnoses Benign prostatic hyperplasia with lower urinary tract symptoms, symptom details unspecified N40.1 Lower urinary tract symptom detail: unspecified Nocturia more than twice per night R35.1 Urinary retention with incomplete bladder emptying R33.9 CPT Codes Bladder/Catheter Procedure - CPT: 88493-Unmdholfwi of Bladder ([id number]) Post Residual Void - PVR CPT Code: 71821-Xnoy Void Residual by ultrasound ([id number])
== END 2024-11-29 11:40 | disposition home or self-care (01) ==
LOC: HO.HUSH 10:43
PROVIDERS: PCP Internal Medicine; Visit Provider Urology
DX: N40.1 Benign prostatic hyperplasia with lower urinary tract symptoms (principal); R35.1 Nocturia; R33.9 Retention of urine, unspecified
CPT/HCPCS: 99214

== ENCOUNTER → 2024-11-29 10:43 | Outpatient (BNVA) | payer MEDICARE, SELFPAY | PROVIDERS: PCP Internal Medicine; Visit Provider Urology | DX: N40.1 Benign prostatic hyperplasia with lower urinary tract symptoms (principal); R35.1 Nocturia; R33.8 Other retention of urine | CPT/HCPCS: 51700; 99212 ==

== ENCOUNTER 2025-01-13 07:30 | Emergency (ER) | payer MEDICARE, SELFPAY ==
--- NOTE | ~2025-01-13 | XR_ITS ---
EXAMINATION: XR HAND, RIGHT CLINICAL INFORMATION: swelling/warm to touch COMPARISON: None available. TECHNIQUE: PA, lateral, and oblique views of the right hand. FINDINGS: No fracture, dislocation, or suspicious bone lesion. Alignment is normal. There is mild periarticular osteopenia. There is chondrocalcinosis of the wrist and TFCC. There are periarticular erosions present both in the carpus, MCPs, and interphalangeal joints. Erosions are most prominent involving the subarticular medial lunate, subarticular ulna, and in the third and fourth digits involving the PIP and DIP joints. There is mild joint space narrowing in the MCPs predominantly the first through third. There are small hooked metacarpal head osteophytes present. There is severe joint space narrowing with sclerosis and marginal productive changes at the first CMC joint, and lesser in the STT joints. No discrete soft tissue abnormality. XR/XR hand RT min 3V IMPRESSION: 1. 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 Differential mainly includes rheumatoid arthritis. Would correlate with serology/rheumatoid factor. 2. There is likely superimposed degenerative arthropathy at the first CMC joint. Electronically signed by: Salinas Hilario MD 01/13/2025 08:45 AM [facility]
[2025-01-13 07:55] VITALS: BP 181/74; PULSE 60; RESP 16; TEMP 36.3; O2SAT 98; BMI 22.9
[2025-01-13 08:11] LABS: MANUAL DIFF FLAG NO
[2025-01-13 08:16] LABS: Basophils Percent Auto 0.6 % (0-2); Eosinophils Absolute Auto 0.1 X10*3/uL (0.0-0.4); Eosinophils Percent Auto 1.2 % (0-4); Hematocrit 34.4 % (42.0-52.0); Hemoglobin 10.7 g/dl (14.0-18.0); Imm Gran Abs Auto 0.02 X10*3/uL (0.00-0.03); Imm Gran Pct Auto 0.4 % (0.0-0.4); Lymphocytes Absolute Auto 0.6 X10*3/uL (1.2-4.9); Lymphocytes Percent Auto 11.5 % (20-40); Mean Corpuscular HGB Conc 31.1 g/dl (31.0-36.0); Mean Platelet Volume 10.8 fL (9.4-12.4); Monocytes Absolute Auto 0.3 X10*3/uL (0.1-1.2); Monocytes Percent Auto 5.7 % (2-11); Neutrophils Absolute Auto 4.1 x10*3/uL (2.0-8.3); Neutrophils Percent Auto 80.6 % (45-73); Platelet Count 126 X10*3/uL (160-400); Red Blood Count 5.34 X10*6/uL (4.60-5.80); Red Cell Distribution Width 15.5 % (11.0-16.0); White Blood Count 5.1 X10*3/uL (4.8-10.8)
[2025-01-13 08:17] LABS: Mean Corpuscular Volume 64.4 fL (80.0-98.0)
[2025-01-13 08:26] LABS: Alanine Aminotransferase 10 U/L (0-40); Albumin Level 3.8 g/dL (3.5-5.0); Alkaline Phosphatase 126 U/L (39-117); Anion Gap 14 (12-20); Aspartate Amino Transferase 20 U/L (5-37); Bilirubin Total 0.9 mg/dL (0.0-1.0); Blood Urea Nitrogen 14 mg/dL (9-16); Calcium 9.3 mg/dL (8.4-10.2); Carbon Dioxide 21 mmol/L (22-29); Chloride 109 mmol/L (96-108); Creatinine Clr Calc Pharmacy 48.2; Estimated Glomerular Filt Rate > 60; Glucose Random 183 mg/dL (60-115); Potassium 3.6 mmol/L (3.3-5.1); Sodium 140 mmol/L (135-145); Total Protein 6.8 g/dL (6.5-8.0)
[2025-01-13 10:42] VITALS: BP 196/74; PULSE 59; RESP 17; TEMP 37; O2SAT 97
[2025-01-13 11:48] VITALS: BP 167/56; PULSE 56; RESP 18; TEMP 36.7; O2SAT 97
--- NOTE | 2025-01-13 11:50 | ED_ITS ---
HPI - Extremity Problem General Chief complaint: Extremity Injury, Upper Stated complaint: R hand pain Time Seen by Provider: 01/13/25 11:49 Source: patient and family Limitations: other (Cognitive impairment) History of Present Illness ED Provider: Saskia Osborne PA-C HPI Narrative: 89-year-old male with a history of cognitive impairment, BPH, GERD, hypertension, who presents with right hand pain for several days. Patient states preceding the discomfort, he had been shoveling during the recent storm. Patient now complains of swelling and pain over the right thumb. Related Data Previous Rx's ?Medication ?Instructions ?Recorded donepezil 5 mg tablet 5 mg PO BEDTIME 30 days #30 tabs 02/17/24 diphenhydramine HCl 25 mg tablet 25 mg PO TID PRN itching/rash #30 11/11/24 (Allergy Relief (diphenhydramine)) tabs folic acid 1 mg tablet 1 mg PO DAILY #90 tabs 11/11/24 metoprolol succinate 25 mg 25 mg PO DAILY #90 tabs 11/11/24 tablet,extended release 24 hr omeprazole 20 mg capsule,delayed 20 mg PO DAILY #90 caps 11/11/24 release finasteride 5 mg tablet 5 mg PO DAILY 90 days #90 tabs 11/30/24 Allergies Allergy/AdvReac Type Severity Reaction Status Date / Time No Known Allergies Allergy Verified 01/13/25 07:59 Review of Systems 2 Review of Systems: Yes all other systems are reviewed and are negative Constitutional: Constitutional: Denies fever(s) Musculoskeletal: Musculoskeletal: Reports arthralgias and Reports joint swelling PMFSH Past Medical History Attestation statement: The following information was validated with the patient. 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 Benign prostatic hyperplasia with lower urinary tract 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 GERD without esophagitis Constipation Spondylosis of lumbar region without myelopathy or radiculopathy Peripheral polyneuropathy Pure hypercholesterolemia Coronary artery disease Surgical History History of cardiac catheterization Stented coronary artery Family History Family History Father Medical history unknown Mother Medical history unknown Family/Other Thalassemia Social History Social History Housing: House Alcohol intake: never Patient Tobacco Use Status: Former Tobacco user e-Cigarette/Vaping Use: Never Used Second Hand Smoke Exposure: Yes Do you have a plan to hurt others: No Plan service: No Current occupational status: retired Cognitive needs: No Hearing needs: No Vision needs: Yes Physical Exam 2 Vital Signs: Vital Signs: Last Vital Signs Temp 98.0 F 01/13/25 11:48 Pulse 56 01/13/25 11:48 Resp 18 01/13/25 11:48 BP 167/56 H 01/13/25 11:48 Pulse Ox 97 01/13/25 11:48 O2 Del Method Room Air 01/13/25 11:48 BMI result Body Mass Index 22.9 Const: Other: Alert Orientation/consciousness: patient oriented x3 Resp: Effort & Inspection: normal respiratory effort Cardio: Other: Normal peripheral perfusion Skin: Other: Warm dry no rash Neuro: General: patient oriented x3, gait normal, no focal motor deficits and CN's II-XI intact bilaterally Extrem: Other: Mild swelling noted over the right thumb and wrist, able to flex and extend Psych: Other: Calm cooperative Medical Decision Making Medical Decision Making MDM Narrative: 89-year-old male with a history of cognitive impairment, BPH, GERD, hypertension, who presents with right hand pain for several days. Patient states preceding the discomfort, he had been shoveling during the recent storm. Patient now complains of swelling and pain over the right thumb. No relevant chronic issues History: Per patient and his son I have considered the following differential diagnoses: Fracture, dislocation, sprain Plan: X-ray obtained from triage, the patient has significant arthritic changes, however there was no fracture or dislocation. We will place in a splint, send with rice measures he can follow up with primary care. I have independently reviewed the following tests: X-ray right hand: XR/XR hand RT min 3V IMPRESSION: 1. 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 Differential mainly includes rheumatoid arthritis. Would correlate with serology/rheumatoid factor. 2. There is likely superimposed degenerative arthropathy at the first CMC joint. Electronically signed by: Salinas Hilario MD 01/13/2025 08:45 AM [facility] [place] Data 01/13/25 08:08 01/13/25 08:08 Labs: Lab Results 01/13/25 Range/Units 08:08 WBC 5.1 (4.8-10.8) X10*3/uL RBC 5.34 (4.60-5.80) X10*6/uL Hgb 10.7 L (14.0-18.0) g/dl Hct 34.4 L (42.0-52.0) % MCV 64.4 L (80.0-98.0) fL MCH 20.0 L (27.0-33.0) pg MCHC 31.1 (31.0-36.0) g/dl RDW 15.5 (11.0-16.0) % Plt Count 126 L (160-400) X10*3/uL MPV 10.8 (9.4-12.4) fL Immature Gran % (Auto) 0.4 (0.0-0.4) % Neut % (Auto) 80.6 H (45-73) % Lymph % (Auto) 11.5 L (20-40) % [place] % (Auto) 5.7 (2-11) % Eos % (Auto) 1.2 (0-4) % Baso % (Auto) 0.6 (0-2) % Lymph # (Auto) 0.6 L (1.2-4.9) X10*3/uL [place] # (Auto) 0.3 (0.1-1.2) X10*3/uL Eos # (Auto) 0.1 (0.0-0.4) X10*3/uL Baso # (Auto) 0.0 (0.0-0.2) X10*3/uL Abs Immat Gran (auto) 0.02 (0.00-0.03) X10*3/uL Absolute Neuts (auto) 4.1 (2.0-8.3) x10*3/uL Absolute Nucleated RBC 0.000 (0.0-0.012) X10*3/uL Nucleated RBC % (auto) 0.0 (0.0-0.2) /100WBC Smear Path Review SEE NOTE Sodium 140 (135-145) mmol/L Potassium 3.6 (3.3-5.1) mmol/L Chloride 109 H (96-108) mmol/L Carbon Dioxide 21 L (22-29) mmol/L Anion Gap 14 (12-20) BUN 14 (9-16) mg/dL Creatinine 0.97 (0.5-1.4) mg/dL Estim Creat Clear Calc 48.2 Estimated GFR > 60 Random Glucose 183 H (60-115) mg/dL Calcium 9.3 (8.4-10.2) mg/dL Total Bilirubin 0.9 (0.0-1.0) mg/dL AST 20 (5-37) U/L ALT 10 (0-40) U/L Alkaline Phosphatase 126 H (39-117) U/L Total Protein 6.8 (6.5-8.0) g/dL Albumin 3.8 (3.5-5.0) g/dL Discharge Plan Discharge Clinical Impression: Right wrist sprain Patient Disposition: Home, Self-Care Instructions: Wrist Sprain (ED), R.I.C.E. Treatment (ED) Additional Instructions: The x-ray of the wrist was negative for fracture or dislocation. You sustained a sprain. The x-ray also revealed that you have significant arthritis. See home care instructions. You can use [id number] ibuprofen 600 mg taken every 6 hours with food, alternated with [id number] Tylenol 1000 mg taken every 8 hours. Follow up with your primary care provider as needed. Prescriptions: No Action diphenhydramine HCl [Allergy Relief(diphenhydramin)] 25 mg tablet 25 mg PO TID PRN (Reason: itching/rash) Qty: 30 5RF folic acid 1 mg tablet 1 mg PO DAILY Qty: 90 8RF metoprolol succinate 25 mg tablet extended release 24 hr 25 mg PO DAILY Qty: 90 2RF omeprazole 20 mg capsule,delayed release(DR/EC) 20 mg PO DAILY Qty: 90 11RF finasteride 5 mg tablet 5 mg PO DAILY 90 Days Qty: 90 3RF donepezil 5 mg tablet 5 mg PO BEDTIME 30 Days Qty: 30 3RF Print Language: Turkmen
[2025-01-13 12:08] VITALS: BP 167/56; PULSE 56; RESP 18; TEMP 36.7; O2SAT 97
== END 2025-01-13 12:09 | disposition home or self-care (01) ==
PROVIDERS: Emergency Provider Emergency Medicine; PCP Internal Medicine
DX: M25.531 Pain in right wrist (principal); Z87.891 Personal history of nicotine dependence; Z79.899 Other long term (current) drug therapy
CPT/HCPCS: 36415; 73130; 80053; 85025; 99282; 99283

== ENCOUNTER → 2025-01-13 08:28 | Outpatient (BNV) | payer MEDICARE, SELFPAY | PROVIDERS: PCP Internal Medicine; Visit Provider Radiology Diagnostic Radiology | DX: M11.231 Other chondrocalcinosis, right wrist (principal) | CPT/HCPCS: 73130 ==

== ENCOUNTER 2025-02-14 08:50 | Outpatient (REF) | payer MEDICARE, SELFPAY ==
[2025-02-14 09:15] LABS: MANUAL DIFF FLAG NO
[2025-02-14 09:41] LABS: Appearance Urine Clear; Color Urine Yellow; Glucose Urine UA Negative (Negative); Leukocyte Esterase Urine Negative (Negative); Nitrite Urine Negative (Negative); PH 5.5 (5.0-9.0); Specific Gravity - Urine 1.025 (1.005-1.025); UMIC TRIGGER UACC YES; Urine Blood Negative (Negative); Urine Ketones Trace mg/dL (Negative); Urine Protein 300 (3+) mg/dL (Neg-Trace)
[2025-02-14 09:44] LABS: Basophils Percent Auto 0.8 % (0-2); Eosinophils Absolute Auto 0.1 X10*3/uL (0.0-0.4); Eosinophils Percent Auto 1.7 % (0-4); Hematocrit 35.8 % (42.0-52.0); Hemoglobin 11.1 g/dl (14.0-18.0); Imm Gran Abs Auto 0.03 X10*3/uL (0.00-0.03); Imm Gran Pct Auto 0.6 % (0.0-0.4); Lymphocytes Absolute Auto 0.9 X10*3/uL (1.2-4.9); Mean Corpuscular Hemoglobin 20.2 pg (27.0-33.0); Mean Corpuscular Volume 65.1 fL (80.0-98.0); Monocytes Absolute Auto 0.4 X10*3/uL (0.1-1.2); Monocytes Percent Auto 7.2 % (2-11); Neutrophils Absolute Auto 3.4 x10*3/uL (2.0-8.3); Neutrophils Percent Auto 70.7 % (45-73); Platelet Count 130 X10*3/uL (160-400); Red Cell Distribution Width 16.1 % (11.0-16.0); White Blood Count 4.8 X10*3/uL (4.8-10.8)
[2025-02-14 09:48] LABS: Bacteria Urine None Seen (None Seen); Hyaline Casts Urine 0-2 /LPF (0-2); RBC Urine 0-2 /HPF (0-2); Squamous Epithelial Cell Urine 0-2 /HPF (0-2); WBC Urine 0-5 /HPF (0-5)
[2025-02-14 10:40] LABS: Alanine Aminotransferase 12 U/L (0-40); Alkaline Phosphatase 119 U/L (39-117); Anion Gap 9 (12-20); Aspartate Amino Transferase 20 U/L (5-37); Bilirubin Total 1.2 mg/dL (0.0-1.0); Blood Urea Nitrogen 17 mg/dL (9-16); Calcium 9.3 mg/dL (8.4-10.2); Carbon Dioxide 27 mmol/L (22-29); Chloride 111 mmol/L (96-108); Cholesterol 136 mg/dL (<200); Estimated Glomerular Filt Rate > 60; Glucose Fasting 98 mg/dL (60-99); HDL Cholesterol 56 mg/dL (>40); LDL Cholesterol Calculated 64 mg/dL (<100); Potassium 3.9 mmol/L (3.3-5.1); Sodium 143 mmol/L (135-145); Total Protein 6.6 g/dL (6.5-8.0); Triglycerides 81 mg/dL (<150)
[2025-02-14 10:49] LABS: TSH reflex Free T4 2.28 uIU/mL (0.32-4.0); Vitamin D 25-OH Total 34.6 ng/mL (>30)
[2025-02-14 10:51] LABS: Folate 16.7 ng/mL (> or = 4.0); Vitamin B12 443 pg/mL (200-900)
== END 2025-02-14 08:51 | disposition home or self-care (01) ==
LOC: HO.LAB 08:50
PROVIDERS: PCP Internal Medicine; Visit Provider Internal Medicine
DX: D64.9 Anemia, unspecified (principal); E78.00 Pure hypercholesterolemia, unspecified; E55.9 Vitamin D deficiency, unspecified; E53.8 Deficiency of other specified B group vitamins
CPT/HCPCS: 36415; 80053; 80061; 81001; 82306; 82607; 82746; 84443; 85025

== ENCOUNTER 2025-02-28 11:04 | Outpatient (AMB) | payer MEDICARE, SELFPAY ==
--- NOTE | 2025-02-28 11:10 | MHC.OFFVIS ---
Intake Visit Reasons: 3 month follow/PVR Intake Note: Patient is present for 3m/PVR Urology Medication:FINASTERIDE Antibiotic Allergy:NONE Blood Thinner:NONE TODAY'S PVR:39ML'S Steward/Stewardess Smoke Room Required: No Allergies No Known Allergies Allergy (Verified 02/28/25 11:11) HPI Comments Details: Tiago is a pleasant male. He is a patient of Dr. Echavarria. 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 Benign prostatic hyperplasia with lower urinary tract 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 GERD without esophagitis Constipation Spondylosis of lumbar region without myelopathy or radiculopathy Peripheral polyneuropathy Pure hypercholesterolemia Coronary artery disease Surgical History History of cardiac catheterization Stented coronary artery Family History Father Medical history unknown Mother Medical history unknown Family/Other Thalassemia Social History Housing: House Alcohol intake: never Patient Tobacco Use Status: Former Tobacco user e-Cigarette/Vaping Use: Never Used Second Hand Smoke Exposure: Yes service: No Current occupational status: retired Cognitive needs: No Hearing needs: No Vision needs: Yes Office Procedures Post Void Residual Post Residual Void Post Void Residual (PVR): 39 [id number] Void Residual by ultrasound Results AMB Urinalysis, Automated UA Leukoctes 0 Noa/uL Last Edit by ULISSES Ryan on 02/28/25 11:23 UA Nitrite Negative Last Edit by ULISSES Ryan on 02/28/25 11:23 UA Urobilinogen 0.2 mg/dL Last Edit by ULISSES Ryan on 02/28/25 11:23 UA Protein 300 mg/dL Last Edit by Devonte Roa CCMA on 02/28/25 11:23 UA pH 5.5 Last Edit by Devonte Roa CCMA on 02/28/25 11:23 UA Blood 0 Jus/uL Last Edit by Devonte Roa CCMA on 02/28/25 11:23 UA Specific [place] 1.025 Last Edit by Devonte Roa CCMA on 02/28/25 11:23 UA Ketone Negative Last Edit by Devonte Roa CCMA on 02/28/25 11:23 UA Bilirubin 0 mg/dL Last Edit by ULISSES Ryan on 02/28/25 11:23 UA Glucose 0 mg/dL Last Edit [facility] on 02/28/25 11:23 Results Reviewed Results Reviewed: Laboratory Last Values Urine pH (Auto) 5.5 02/28/25 11:23 Specific [place] (Auto) 1.025 02/28/25 11:23 Urine Protein (Auto) 300 mg/dL 02/28/25 11:23 Glucose (UA)(Auto) 0 mg/dL 02/28/25 11:23 Urine Ketones (Auto) Negative 02/28/25 11:23 Urine Blood (Auto) 0 Jus/uL 02/28/25 11:23 Urine Nitrite (Auto) Negative 02/28/25 11:23 Urine Bilirubin (Auto) 0 mg/dL 02/28/25 11:23 Urine Urobilinogen (Auto) 0.2 mg/dL 02/28/25 11:23 Leukocyte Esterase (Auto) 0 Noa/uL 02/28/25 11:23 Assessment & Plan Assessment & Plan Orders: Orders AMB Urinalysis Automated Today Z13.9 - Encounter for screening, unspecified Coding CPT Codes Post Residual Void - PVR CPT Code: 61794-[id number] Void Residual by ultrasound ([id number])
== END 2025-02-28 12:04 | disposition home or self-care (01) ==
LOC: HO.HUSH 11:04
PROVIDERS: PCP Internal Medicine; Visit Provider Urology
DX: Z13.9 Encounter for screening, unspecified (principal)

== ENCOUNTER → 2025-02-28 11:04 | Outpatient (BNVA) | payer MEDICARE, SELFPAY | PROVIDERS: PCP Internal Medicine; Visit Provider Urology | DX: N40.1 Benign prostatic hyperplasia with lower urinary tract symptoms (principal); R35.1 Nocturia | CPT/HCPCS: 51798; 81003; 99212 ==

== ENCOUNTER 2025-03-01 13:47 | Outpatient (AMB) | payer MEDICARE, SELFPAY ==
--- NOTE | 2025-03-01 14:21 | MHC.PC.OV ---
Vital Signs 03/01/25 14:23 Height 5 ft 7 in Weight 151 lb 2 oz BMI 23.7 BP 116/64 Blood Pressure Location Lt brachial Position Sitting Pulse 70 Pulse Source Pulse Oximeter Temp 97.3 F Temp Source Temporal Artery Scan Pulse Oximetry (%) 95 Oxygen Delivery Method Room Air Intake Visit Reasons: Follow up Intake Note: Patient is here to follow up on BPH, Insomina, CAD, Hypercholesterolemia. Highway Maintenance Crew Worker Required: No Senior Electrical Designer: Not Required per policy Accompanied by: Self / Same As Patient Allergies No Known Allergies Allergy (Verified 03/01/25 14:23) Tobacco use date assessed: 03/01/25 Fall risk assessment: No Falls in past year Last assessed Fall Risk: 03/01/25 Dental Screening Dental Screen Date: 03/01/25 Did you have a dental visit in the last 12 months?: No Did you have a dental problem in the last 6 months where you did not have access to dental care?: No Was dental information given to patient?: No (Dentures) HPI Follow up HPI Details 89-year-old male with past medical history of coronary artery disease, hypercholesterolemia, peripheral neuropathy, GERD, BPH last seen by Dr. Echavarria 10/2024 coming in for follow up. In review of the notes, patient was seen by Urology 02/28/2025 started on finasteride and advised three-month follow up. Patient was seen in [facility] ED 12/2024 for right wrist sprain advised to use koff-gmr-zwnshfj ibuprofen and Tylenol as needed. Patient tells us today he is feeling generally well. Has no complains of chest pain or shortness of breath. He does appear mildly confused on exam. He was recently seen by Cardiology and states his medication was adjusted but unsure of the dose or the medication changes. 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 Benign prostatic hyperplasia with lower urinary tract 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 GERD without esophagitis Constipation Spondylosis of lumbar region without myelopathy or radiculopathy Peripheral polyneuropathy Pure hypercholesterolemia Coronary artery disease Surgical History History of cardiac catheterization Stented coronary artery Family History Father Medical history unknown Mother Medical history unknown Family/Other Thalassemia Social History Housing: House Alcohol intake: never Patient Tobacco Use Status: Former Tobacco user e-Cigarette/Vaping Use: Never Used Second Hand Smoke Exposure: Yes service: No Current occupational status: retired Cognitive needs: No Hearing needs: No Vision needs: Yes Questionnaire PHQ-9 Over the last 2 weeks, how often have you been bothered by any of the following problems? 1. Little interest or pleasure in doing things: not at all 2. Feeling down, depressed, or hopeless: not at all 3. Trouble falling or staying asleep, or sleeping too much: not at all 4. Feeling tired or having little energy: not at all 5. Poor appetite or overeating: not at all 6. Feeling bad about yourself - or that you are a failure or have let yourself or your family down: not at all 7. Trouble concentrating on things, such as reading the newspaper or watching television: not at all 8. Moving or speaking so slowly that other people could have noticed. Or the opposite - being so fidgety or restless that you have been moving around a lot more than usual: not at all 9. Thoughts that you would be better off or of hurting yourself in some way: not at all Total score: 0 Depression Screening Interpretation: Negative Depression Screening Done: Yes Source: Developed by Drs. Marlon Mota, Tequila Swain, Yuriy Mosquera and colleagues, with an educational rose from [employer]. Thrive Questionnaire Date Thrive assessed: 03/01/25 I am a: Patient What is your living situation today?: I have a steady place to live Within the past 12 months, did the food you bought not last and you didn't have the money to get more?: Never true Within the past 12 months, did you worry whether your food would run out before you got money to buy more?: Never true Do you have trouble paying for medicines?: No Do you have trouble getting transportation to medical appointments?: No Do you have trouble paying your heating and electricity bill?: No Do you have trouble taking care of your child, family member or friend?: No Do you have trouble with day-to-day activities such as bathing, preparing meals, shopping, managing finances, etc.?: No Are you currently unemployed and looking for a job?: No Are you interested in more education?: No Please select the resources that you would like help with: None Currently or been in a relationship where the following occur: No concerns reported THRIVE Score: 0 AUDIT C Alcohol Use Questionnaire (AUDIT-C) 1. How often do you have a drink containing alcohol?: Never Total Score: 0 JOSETTE-7 AMB Questionnaire JOSETTE-7 Date JOSETTE - 7 assessed: 03/01/25 Feeling nervous, anxious, or on edge: 0 = Not at all Not being able to stop or control worryin = Not at all Worrying too much about different things: 0 = Not at all Trouble relaxin = Not at all Being so restless that it is hard to sit still: 0 = Not at all Becoming easily annoyed or irritable: 0 = Not at all Feeling afraid as if something awful might happen: 0 = Not at all Total JOSETTE-7 score (0-4 normal; 5-9 mild; 10-14 moderate; 15-21 severe): 0 Source: Developed by Drs. Marlon Mota, Tequila Swain, Yuriy Mosquera and colleagues, with an educational rose from [employer]. Review of Systems Const Denies body aches, Denies chills, Denies fever(s), Denies headache(s) and Denies poor appetite Eyes Reports no additional complaints ENT Denies dysphagia, Denies dizziness, Denies headache(s) and Denies odynophagia Card Denies chest pain, Denies syncope, Denies edema, Denies irregular heart rhythm, Denies lightheadedness and Denies dyspnea Resp Denies cough and Denies dyspnea GI Denies abdominal pain, Denies constipation, Denies dysphagia, Denies diarrhea, Denies nausea, Denies odynophagia and Denies vomiting Reports no additional complaints Musc Reports no additional complaints and Denies abnormal gait Skin/Breast Reports system reviewed and no additional complaints, except as documented Neuro Denies abnormal gait, Denies dizziness, Denies syncope and Denies headache(s) Psych Reports no additional complaints Physical exam (Primary Care) Vital Signs: Last Vital Signs Temp 97.3 F 03/01/25 14:23 Pulse 70 03/01/25 14:23 BP 116/64 03/01/25 14:23 Pulse Ox 95 03/01/25 14:23 Oxygen Delivery Method Room Air 03/01/25 14:23 BMI result Body Mass Index 23.7 Tobacco/Smoking Status: Tobacco use Status Tobacco use date assessed 03/01/25 03/01/25 14:28 Patient Tobacco Use Status Former Tobacco user 03/01/25 14:28 e-Cigarette/Vaping Use Never Used 03/01/25 14:28 PHQ-9: PHQ-9 Score PHQ-9: Total score 0 03/01/25 14:28 Depression Screening Interpretation: Negative Thrive Assessment: Date of Thrive Assessment Date Thrive assessed 03/01/25 03/01/25 14:28 Currently or been in a relationship where the following occur: No concerns reported Const General: cooperative, healthy appearing, comfortable and no acute distress Orientation/consciousness: patient oriented x3 HENMT Head: Yes normocephalic Ears: hearing grossly normal bilaterally General nose exam: Normal external nose present Eyes General: appearance normal, both eyes and all related structures Conjunctivae: conjunctivae normal Neck Neck: Yes full ROM and Yes no lymphadenopathy Resp Effort & Inspection: normal respiratory effort Auscultation: clear to auscultation bilaterally, no crackles, no rales, no rhonchi and no wheezes Cardio Rate: regular rate Rhythm: regular rhythm Skin General skin exam: no rashes or lesions noted Neuro General: patient oriented x3 Gait exam (Neuro): Normal gait present Extrem General: Yes normal to inspection, Yes full ROM and No edema Psych Affect: normal affect Attitude: cooperative Insight: Good insight present (Psych) Judgement: Good judgement present (Psych) Coding Level of Care Code Est Pt Level 3 (89397) Diagnoses Memory impairment R41.3 Overweight (BMI 25.0-29.9) E66.3 Pure hypercholesterolemia E78.00 Coronary artery disease involving [place] coronary artery of [place] heart without angina pectoris I25.10 Coronary Disease-Associated Artery/Lesion type: [place] artery [place] vs. transplanted heart: [place] heart Associated angina: without angina GERD without esophagitis K21.9 Assessment & Plan Assessment & Plan (1) Memory impairment: Code(s): R41.3 - Other amnesia Category: Medical Plan: Patient having mild confusion on exam however easily redirectable. Difficulty to obtain baseline without spouse accompanying the patient. He was seen also by Dr. Echavarria today and appears to be at his baseline mentation. (2) Overweight (BMI 25.0-29.9): Code(s): E66.3 - Overweight Category: Medical Plan: Healthy diet and regular exercise is encouraged. (3) Pure hypercholesterolemia: Code(s): E78.00 - Pure hypercholesterolemia, unspecified Category: Medical Plan: Avoid foods that are high in cholesterol such as red meat, fried foods, eggs and baked goods. Triglyceride goal of less than 150 and LDL goal of less than 70. Per last note patient was on Atorvastatin but was possibly changed by cardiology unsure of new medication. Plan to obtain cardiology notes continue on strict cholesterol management due to history of coronary artery disease. (4) Coronary artery disease: Comment: S/P elective cardiac catheterization in January 2018 with PCI of the mid and proximal LAD at the site of prior stent Repeat nuclear stress testing was negative but Cardiology recommended continuing Clopidogrel for at least a few years due to his history of overlapping stenting Code(s): I25.10 - Atherosclerotic heart disease of [place] coronary artery without angina pectoris Category: Medical Qualifiers: Coronary Disease-Associated Artery/Lesion type: [place] artery [place] vs. transplanted heart: [place] heart Associated angina: without angina Qualified Code(s): I25.10 - Atherosclerotic heart disease of [place] coronary artery without angina pectoris Plan: Patient currently remains asymptomatic from a cardiac standpoint Continue Metoprolol ER 25 mg QD and Aspirin 81 mg QD; Clopidogrel was discontinued 1 year after his PCI Follow-up with cardiology as scheduled (5) GERD without esophagitis: Code(s): K21.9 - Gastro-esophageal reflux disease without esophagitis Category: Medical Plan: Avoid trigger foods such as citrus, tomato products, soda, caffeine, spicy foods and other foods that may be irritating to your stomach. Avoid laying flat 3-4 hours after eating and elevate the head of the bed 30 degrees to prevent acid from moving into the esophagus. Continue on omeprazole Plan This note was constructed using voice recognition software. While every effort has been made to ensure accuracy and bark spudder, still areas may have been included sometimes these areas may affect the content or meeting of the given symptoms. Total time spent caring for the patient today was twenty minutes. This includes time spent before the visit reviewing the chart, time spent during the visit, and time spent after the visit and documentation.
[2025-03-01 14:23] VITALS: BP 116/64; PULSE 70; TEMP 36.3; O2SAT 95; BMI 23.7
== END 2025-03-01 15:06 | disposition home or self-care (01) ==
LOC: HO.HMCH 13:47
PROVIDERS: PCP Internal Medicine
DX: R41.3 Other amnesia (principal); E66.3 Overweight; E78.00 Pure hypercholesterolemia, unspecified; I25.10 Atherosclerotic heart disease of native coronary artery without angina pectoris; K21.9 Gastro-esophageal reflux disease without esophagitis

== ENCOUNTER → 2025-03-01 13:47 | Outpatient (BNVA) | payer MEDICARE, SELFPAY | PROVIDERS: PCP Internal Medicine | DX: N40.0 Benign prostatic hyperplasia without lower urinary tract symptoms (principal); G47.00 Insomnia, unspecified; I25.10 Atherosclerotic heart disease of native coronary artery without angina pectoris; E78.00 Pure hypercholesterolemia, unspecified; G62.9 Polyneuropathy, unspecified; K21.9 Gastro-esophageal reflux disease without esophagitis; R41.3 Other amnesia; E66.3 Overweight; Z68.23 Body mass index [BMI] 23.0-23.9, adult | CPT/HCPCS: 96127; 99212 ==

== ENCOUNTER 2025-05-01 14:25 | Outpatient (AMB) | payer MEDICARE, SELFPAY ==
[2025-05-01 14:27] VITALS: BP 140/61; PULSE 54; RESP 20; TEMP 36.1; O2SAT 97; BMI 23.2
--- NOTE | 2025-05-01 14:27 | MHC.PC.OV ---
Vital Signs 05/01/25 14:27 05/01/25 15:00 Height 5 ft 7 in Weight 148 lb BMI 23.2 BP 140/61 H 126/62 Blood Pressure Location Lt brachial Lt brachial Position Sitting Sitting Respiration 20 Pulse 54 Pulse Source Pulse Oximeter Temp 96.9 F Temp Source Temporal Artery Scan Pulse Oximetry (%) 97 Oxygen Delivery Method Room Air Intake Visit Reasons: follow up before cruise Child Psychologist: Present Accompanied by: Self / Same As Patient Allergies No Known Allergies Allergy (Verified 05/01/25 14:55) Medication List - Last Reconciled 05/01/25 by FREDDIE Oconnor diphenhydramine HCl (Allergy Relief (diphenhydramine)) 25 mg PO TID PRN donepezil 5 mg PO BEDTIME 30 days finasteride 5 mg PO DAILY 90 days folic acid 1 mg PO DAILY metoprolol succinate ER 25 mg PO DAILY omeprazole 20 mg PO DAILY Tobacco use date assessed: 03/01/25 Dental Screening Dental Screen Date: 03/01/25 HPI follow up before cruise HPI Details Patient is a 89-year-old male with significant past medical history of benign prostatic hyperplasia with lower urinary tract symptoms, thalassemia carrier, GERD, constipation spondylosis of lumbar region without myelopathy or radiculopathy, peripheral polyneuropathy, CAD The patient is presenting to be examined before his cruise Reports that he is feeling well and has no issues today Denies chest pain, SOB, heart palpitation, or dizziness Denies abdominal pain/change in bowel habits Denies urinary symptoms Denies joint/back pain PFSH 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 Benign prostatic hyperplasia with lower urinary tract 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 GERD without esophagitis Constipation Spondylosis of lumbar region without myelopathy or radiculopathy Peripheral polyneuropathy Pure hypercholesterolemia Coronary artery disease Surgical History History of cardiac catheterization Stented coronary artery Family History Father Medical history unknown Mother Medical history unknown Family/Other Thalassemia Social History Housing: House Alcohol intake: never Patient Tobacco Use Status: Former Tobacco user e-Cigarette/Vaping Use: Never Used Second Hand Smoke Exposure: Yes service: No Current occupational status: retired Cognitive needs: No Hearing needs: Yes Vision needs: Yes Questionnaire PHQ-9 Over the last 2 weeks, how often have you been bothered by any of the following problems? 1. Little interest or pleasure in doing things: not at all 2. Feeling down, depressed, or hopeless: not at all 3. Trouble falling or staying asleep, or sleeping too much: not at all 4. Feeling tired or having little energy: not at all 5. Poor appetite or overeating: not at all 6. Feeling bad about yourself - or that you are a failure or have let yourself or your family down: not at all 7. Trouble concentrating on things, such as reading the newspaper or watching television: not at all 8. Moving or speaking so slowly that other people could have noticed. Or the opposite - being so fidgety or restless that you have been moving around a lot more than usual: not at all 9. Thoughts that you would be better off or of hurting yourself in some way: not at all Total score: 0 Depression Screening Interpretation: Negative Depression Screening Done: Yes Source: Developed by Drs. Marlon Mota, Yuriy Breaux and colleagues, with an educational rose from [employer]. Thrive Questionnaire Date Thrive assessed: 03/01/25 AUDIT C Alcohol Use Questionnaire (AUDIT-C) 1. How often do you have a drink containing alcohol?: Never Total Score: 0 Score Reviewed/Action Taken: Yes JOSETTE-7 AMB Questionnaire JOSETTE-7 Date JOSETTE - 7 assessed: 03/01/25 Source: Developed by Drs. Marlon Mota, Tequila Swain, Yuriy Mosquera and colleagues, with an educational rose from [employer]. Review of Systems Const Denies headache(s) Eyes Denies loss of vision ENT Denies vertigo, Denies dizziness, Denies headache(s) and Denies sore throat Card Denies chest pain, Denies leg edema and Denies lightheadedness Resp Denies cough, Denies hemoptysis and Denies wheezing GI Denies abdominal pain, Denies melena, Denies constipation, Denies diarrhea and Denies vomiting Denies dysuria, Denies urinary frequency and Denies urinary urgency Musc Denies arthralgias, Denies joint swelling, Denies numbness and Denies tingling Neuro Denies Abnormal speech present, Denies behavioral changes, Denies vertigo, Denies dizziness, Denies headache(s), Denies loss of vision, Denies memory loss, Denies numbness and Denies tingling Psych Denies anxiety, Denies behavioral changes, Denies depression, Denies memory loss and Denies panic attacks Antwon/Lymph Denies easy bleeding and Denies easy bruising Aller/Immun Denies wheezing Physical exam (Primary Care) Vital Signs: Last Vital Signs Temp 96.9 F 05/01/25 14:27 Pulse 54 05/01/25 14:27 Resp 20 05/01/25 14:27 BP 126/62 05/01/25 15:00 Pulse Ox 97 05/01/25 14:27 Oxygen Delivery Method Room Air 05/01/25 14:27 BMI result Body Mass Index 23.2 Tobacco/Smoking Status: Tobacco use Status Tobacco use date assessed 03/01/25 05/01/25 14:31 Patient Tobacco Use Status Former Tobacco user 05/01/25 14:31 e-Cigarette/Vaping Use Never Used 05/01/25 14:31 PHQ-9: PHQ-9 Score PHQ-9: Total score 0 05/01/25 15:04 Depression Screening Interpretation: Negative Thrive Assessment: Date of Thrive Assessment Date Thrive assessed 03/01/25 05/01/25 14:31 Const General: healthy appearing, no acute distress, alert and awake Nutritional Appearance: well nourished Orientation/consciousness: oriented to person, oriented to place and oriented to time HENMT Ears: TM's normal bilaterally General nose exam: Normal nasal mucous membranes and turbinates present Eyes Conjunctivae: conjunctivae normal Sclerae: sclerae normal Pupils: Equal, round and reactive pupils present Neck Neck: Yes no lymphadenopathy and Yes no JVD Thyroid: Thyroid normal Carotids: no bruits Resp Effort & Inspection: normal respiratory effort and not tachypneic Auscultation: no crackles, no rales, no rhonchi and no wheezes Cardio Rate: regular rate Rhythm: regular rhythm Heart sounds: no murmurs and normal S1 and S2 GI Palpation (GI): Soft to palpation, nontender, no hepatomegaly and no splenomegaly Auscultation: normal bowel sounds Skin General skin exam: no rashes or lesions noted and dry skin Neuro General: oriented to person, oriented to place and oriented to time Cranial nerves: Yes Equal, round and reactive pupils present Speech: No Abnormal speech present Gait exam (Neuro): Normal gait present Motor exam (neuro): no tremor noted Extrem Right upper extremity: full ROM Left upper extremity: full ROM Right lower extremity: full ROM; no edema Left lower extremity: full ROM; no edema Psych Mental Status: mental status grossly normal Speech and movement: Normal speech and movement present Affect: normal affect Attitude: cooperative Thought process: Normal thought process present Coding Level of Care Code Est Pt Level 3 (08903) Diagnoses Coronary artery disease involving [place] coronary artery of [place] heart without angina pectoris I25.10 Coronary Disease-Associated Artery/Lesion type: [place] artery [place] vs. transplanted heart: [place] heart Associated angina: without angina Peripheral polyneuropathy G62.9 Constipation, unspecified constipation type K59.00 Constipation type: unspecified constipation type GERD without esophagitis K21.9 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 D56.3 Cognitive impairment R41.89 Urinary retention with incomplete bladder emptying R33.9 Time Spent (min) 36 Assessment & Plan Assessment & Plan (1) Coronary artery disease: Comment: S/P elective cardiac catheterization in January 2018 with PCI of the mid and proximal LAD at the site of prior stent Repeat nuclear stress testing was negative but Cardiology recommended continuing Clopidogrel for at least a few years due to his history of overlapping stenting Code(s): I25.10 - Atherosclerotic heart disease of [place] coronary artery without angina pectoris Category: Medical Qualifiers: Coronary Disease-Associated Artery/Lesion type: [place] artery [place] vs. transplanted heart: [place] heart Associated angina: without angina Qualified Code(s): I25.10 - Atherosclerotic heart disease of [place] coronary artery without angina pectoris Plan: Coronary artery disease with status post LAD stent x2. No chest pain. Continue baby aspirin and metoprolol succinate ER 25 mg daily (2) Peripheral polyneuropathy: Code(s): G62.9 - Polyneuropathy, unspecified Category: Medical Plan: Per chart review the patient used to take amitriptyline 25 mg at for this but stopped taking the medication He is denying pain at this time (3) Constipation: Code(s): K59.00 - Constipation, unspecified Category: Medical Qualifiers: Constipation type: unspecified constipation type Qualified Code(s): K59.00 - Constipation, unspecified Plan: Encouraged increasing p.o. 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 No intervention needed at this time We will continue to monitor CBC (6) Cognitive impairment: Code(s): R41.89 - Other symptoms and signs involving cognitive functions and awareness Category: Medical Plan: Mild cognitive impairment noted with needing to repeat self frequently Continue donepezil 5 mg at bedtime (7) Urinary retention with incomplete bladder emptying: Code(s): R33.9 - Retention of urine, unspecified Category: Medical Plan: Denies urinary symptoms Continue finasteride 5 mg daily Follow up with Urology as scheduled
[2025-05-01 15:00] VITALS: BP 126/62
== END 2025-05-01 15:14 | disposition home or self-care (01) ==
LOC: HO.HMCH 14:25
PROVIDERS: PCP Internal Medicine
DX: I25.10 Atherosclerotic heart disease of native coronary artery without angina pectoris (principal); G62.9 Polyneuropathy, unspecified; K59.00 Constipation, unspecified; K21.9 Gastro-esophageal reflux disease without esophagitis; D56.3 Thalassemia minor; R41.89 Other symptoms and signs involving cognitive functions and awareness; R33.9 Retention of urine, unspecified

== ENCOUNTER → 2025-05-01 14:25 | Outpatient (BNVA) | payer MEDICARE, SELFPAY | PROVIDERS: PCP Internal Medicine | DX: I25.10 Atherosclerotic heart disease of native coronary artery without angina pectoris (principal); G62.9 Polyneuropathy, unspecified; K59.00 Constipation, unspecified; K21.9 Gastro-esophageal reflux disease without esophagitis; D56.3 Thalassemia minor; R41.89 Other symptoms and signs involving cognitive functions and awareness; R33.9 Retention of urine, unspecified | CPT/HCPCS: 99212 ==